=== PATIENT | female | born 1945 | race Caucasian/White ===

== ENCOUNTER 2023-09-20 16:16 | Outpatient (RCR) | payer MEDICARE, SELFPAY | END 2023-09-21 13:08 | disposition home or self-care (01) | LOC: PT 16:16 | PROVIDERS: PCP Internal Medicine; Visit Provider Internal Medicine | DX: R26.81 Unsteadiness on feet (principal); R53.1 Weakness | CPT/HCPCS: 97162 ==

== ENCOUNTER 2023-09-27 12:21 | Outpatient (OUT) | payer MEDICARE, SELFPAY ==
--- NOTE | 2023-09-27 12:26 | CT_ITS ---
[address] [address] Patient Name: MALA SANTIAGO MRN: [id number] date: 1945 Sex: F Assigned Patient Location: CT Current Patient Location: CT Accession/Order Number: [id number] Exam Date: 09/27/2023 12:30 Report Date: 09/27/2023 13:03 At the request of: MT HILTON Procedure: CT head/brain wo con EXAM: CT head/brain wo con CLINICAL INDICATION: mild cognitive impairment G31.84 COMPARISON: None TECHNIQUE: Axial CT images of the brain were obtained without contrast. Coronal and sagittal reformats were obtained. Dose reduction techniques were achieved by using automated exposure control and/or adjustment of mA and/or kV according to patient size and/or use of iterative reconstruction technique. FINDINGS: Left frontal approach ventricular shunt catheter crosses the septum pellucidum and terminates in the right lentiform nucleus. Shunt catheter is intact and courses along the scalp soft tissues. 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 No intracranial hemorrhage, extra-axial fluid collection, midline shift, or acute large vessel territory infarction. No other mass effect. Mild patchy periventricular and subcortical hypoattenuation is likely on the basis of chronic microvascular angiopathic changes. Mild symmetric global volume loss without lobar predominance. Commensurate prominence of the ventricular system. Basal cisterns are patent. Right greater than left frontal, left temporal, and left parietal encephalomalacia/gliosis. Mild asymmetric dilation of the right lateral ventricle. No calvarial fracture. Right frontal and temporal craniotomy changes. Normal soft tissues. Paranasal sinuses and mastoid air cells are well-aerated. CT/CT head/brain wo con IMPRESSION: 1. No acute intracranial process. 2. 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 3. Left frontal approach ventricular shunt catheter crosses the septum pellucidum and terminates in the right lentiform nucleus. Shunt catheter is intact and courses along the scalp soft tissues. Electronically authenticated by: CORBIN LEE Date: 09/27/2023 13:03
--- NOTE | 2023-09-27 12:27 | US_ITS ---
[address] [address] Patient Name: MALA SANTIAGO MRN: [id number] date: 1945 Sex: F Assigned Patient Location: CT Current Patient Location: CT Accession/Order Number: [id number] Exam Date: 09/27/2023 12:43 Report Date: 09/27/2023 14:48 At the request of: MT HILTON Procedure: US carotid duplex BI EXAMINATION: US carotid duplex BI HISTORY: primary hypertension I110 COMPARISON: No relevant comparison available. TECHNIQUE: Duplex Doppler ultrasound analysis of carotid and vertebral arteries. . Bilateral carotid arterial duplex examination was performed using B-mode, color flow and spectral analysis. Carotid stenosis is reported according to validated velocity parameters, similar to NASCET criteria. FINDINGS: RIGHT CAROTID ARTERY Moderate atherosclerotic plaque Subclavian: PSV: 160.0 cm/s cm/s EDV: 0.0 cm/s cm/s CCA: Prox: PSV: 70.9 cm/s cm/s EDV: 14.4 cm/s cm/s Mid: PSV: 83.8 cm/s cm/s EDV: 16.0 cm/s cm/s Distal: PSV: 80.6 cm/s cm/s EDV: 19.2 cm/s cm/s BULB: PSV: 151.5 cm/s cm/s EDV: 25.4 cm/s cm/s ICA: Prox: PSV: 63.3 cm/s cm/s EDV: 14.1 cm/s cm/s Mid: PSV: 62.0 cm/s cm/s EDV: 20.6 cm/s cm/s Distal: PSV: 55.5 cm/s cm/s EDV: 19.3 cm/s cm/s ECA: PSV: 141.5 cm/s cm/s EDV: 13.7 cm/s cm/s VERTEBRAL: PSV: 42.7 cm/s cm/s EDV: 13.0 cm/s cm/s, antegrade ICA/CCA ratio: PSV: 1.8 EDV: 1.6 LEFT CAROTID ARTERY moderate atherosclerotic plaque, elevated flow velocity in the bulb Subclavian: PSV: 141.4 cm/s cm/s EDV: 0.0 cm/s CCA: Prox: PSV: 72.5 cm/s cm/s EDV: 16.0 cm/s Mid: PSV: 74.1 cm/s cm/s EDV: 12.8 cm/s Distal: PSV: 88.7 cm/s cm/s EDV: 16.0 cm/s BULB: PSV: 259.9 cm/s cm/s EDV: 46.2 cm/s ICA: Prox: PSV: 163.8 cm/s cm/s EDV: 24.1 cm/s Mid: PSV: 79.0 cm/s cm/s EDV: 14.4 cm/s Distal: PSV: 80.6 cm/s cm/s EDV: 19.2 cm/s ECA: PSV: 101.5 cm/s cm/s EDV: 7.9 cm/s VERTEBRAL: PSV: 33.4 cm/s cm/s EDV: 7.8 cm/s , antegrade ICA/CCA ratio: PSV: 2.9 EDV: 2.9 US/US carotid duplex BI IMPRESSION: 0-49% flow stenosis right internal carotid artery Elevated flow velocity in the left carotid bulb 50-69% flow stenosis left internal carotid artery Spectral Doppler US Thresholds (Reference: Tk EG, et al. Radiology 2000; 214:247-252) Stenosis (%) PSV (cm/sec) VICA/VCCA 0-49 <150 <2.5 50-69 150-225 2.5-4.0 >70 >225 >4.0 Electronically authenticated by: PEDRO GRIFFIN Date: 09/27/2023 14:48
== END 2023-09-27 12:22 | disposition home or self-care (01) ==
LOC: CT 12:21
PROVIDERS: PCP Internal Medicine; Visit Provider Internal Medicine
DX: G31.84 Mild cognitive impairment of uncertain or unknown etiology (principal); R26.81 Unsteadiness on feet; Z86.79 Personal history of other diseases of the circulatory system; I10 Essential (primary) hypertension; R09.89 Other specified symptoms and signs involving the circulatory and respiratory systems
CPT/HCPCS: 70450; 93880

== ENCOUNTER 2024-02-08 08:04 | Outpatient (OUT) | payer MEDICARE, SELFPAY ==
[2024-02-08 08:27] LABS: Basophils Absolute Auto 0.1 10^3/uL (0.0-0.1); Basophils Percent Auto 0.7 % (0.2-2.0); Eosinophils Absolute Auto 0.3 10^3/uL (0.0-0.7); Eosinophils Percent Auto 3.7 % (0.9-7.0); Hematocrit 39.9 % (36.0-48.0); Hemoglobin 12.3 g/dL (12.0-16.0); Immature Granulocytes Abs Auto 0.02 10^3/uL (0.00-0.03); Immature Granulocytes Pct Auto 0.2 % (0.0-0.5); Lymphocytes Absolute Auto 2.3 10^3/uL (1.2-3.8); Lymphocytes Percent Auto 26.5 % (20.5-60.0); Mean Corpuscular HGB Conc 30.8 g/dL (29.9-35.2); Mean Corpuscular Hemoglobin 26.1 pg (26.7-34.0); Mean Corpuscular Volume 84.5 fL (81.0-99.0); Mean Platelet Volume 11.3 fL (9.5-13.5); Monocytes Absolute Auto 0.9 10^3/uL (0.3-0.8); Monocytes Percent Auto 10.5 % (1.7-12.0); Neutrophils Absolute Auto 5.1 10^3/uL (1.4-6.5); Neutrophils Percent Auto 58.4 % (43.0-75.0); Platelet Count 387 10^3/uL (150-450); Red Blood Count 4.72 10^6/uL (4.20-5.40); White Blood Count 8.7 10^3/uL (4.0-11.0)
[2024-02-08 08:53] LABS: Alanine Aminotransferase 9 U/L (14-59); Albumin Globulin Ratio 0.7; Albumin Level 3.4 g/dL (3.4-5.0); Alkaline Phosphatase 89 U/L (46-116); Anion Gap 14.8; Aspartate Amino Transferase 9 U/L (15-37); BUN Creatinine Ratio 12.7; Bilirubin Total 0.8 mg/dL (0.2-1.0); Calcium 8.7 mg/dL (8.5-10.1); Carbon Dioxide 26.8 mmol/L (21.0-32.0); Chloride 103 mmol/L (98-107); Chol HDL Ratio 3.6; Cholesterol 182 mg/dL (<=200); Estimated GFR (African America 58 (>=60); Estimated GFR (Non-African Ame 48 (>=60); Globulin 4.8 g/dL; Glucose 131 mg/dL (74-106); HDL Cholesterol 50 mg/dL (40-60); LDL Cholesterol Calculated 104.2 mg/dL; Potassium 3.6 mmol/L (3.5-5.1); Sodium 141 mmol/L (136-145); Thyroid Stimulating Hormone 3.346 uIU/mL (0.358-3.740); Total Protein 8.2 g/dL (6.4-8.2); Triglycerides 139 mg/dL (<=150); VLDL CHOLESTEROL 27.8 mg/dL
== END 2024-02-08 08:05 | disposition home or self-care (01) ==
LOC: LAB 08:04
PROVIDERS: PCP Internal Medicine; Visit Provider Internal Medicine
DX: R53.83 Other fatigue (principal); I65.22 Occlusion and stenosis of left carotid artery; I87.2 Venous insufficiency (chronic) (peripheral); Z86.79 Personal history of other diseases of the circulatory system; Z98.890 Other specified postprocedural states; I10 Essential (primary) hypertension
CPT/HCPCS: 36415; 80053; 80061; 84443; 85025

== ENCOUNTER 2024-08-24 08:01 | Outpatient (OUT) | payer MEDICARE, SELFPAY ==
--- OUTSIDE RECORDS SUMMARY | 2024-08-24 08:23 | XMS_ITS | CCD ---
Author Organization [facility] Care Team Providers Care Regional Director Name Role Phone Omer Mcnally Unavailable Unavailable Mcnally, Omer Driscoll Unavailable Unavailable Ball, Houston Crenshaw Unavailable Unavailabl e Mcnally, Omer Driscoll Unavailable Unavailable Mcnally, Omer Driscoll Unavailable Unavailable Mcnally, Omer Driscoll Unavailable Unavailable Ball, Houston Crenshaw Unavailable Unavailabl e BALL, DR CONRAD Consulting Unavailable BALL, DR CONRAD Primary Care Unavailable BALL, DR CONRAD Admitting Unavailable BALL, DR CONRAD Attending Unavailable BALL, DR CONRAD Primary Care Unavailable BALL, DR CONRAD Admitting Unavailable BALL, DR CONRAD Attending Unavailable BALL, DR CONRAD Attending Unavailable BALL, DR CONRAD Consulting Unavailable BALL, DR CONRAD Primary Care Unavailable BALL, DR CONRAD Admitting Unavailable BALL, DR CONRAD Attending Unavailable BALL, DR CONRAD Consulting Unavailable BALL, DR CONRAD Primary Care Unavailable BALL, DR CONRAD Admitting Unavailable ZIEBER, DR JOHN Urias Consulting Unavailable BALL, DR CONRAD Consulting Unavailable BALL, DR CONRAD Primary Care Unavailable BALL, DR CONRAD Admitting Unavailable BALL, DR CONRAD Attending Unavailable Ball, Houston Unavailable MODE SUN Attending Unavailable BALL, HOUSTON Martinez Referring Unavailable MODE SUN Attending Unavailable Allergies Allergy Classification Reported Allergen(s) Allergy Type Date of Onset Reaction(s) Facility (13 sources) metal/nickel Propensity to adverse reactions rash [facility] Other (2 sources) patient allergy list reviewed by nurse or physicia Propensity to adverse reactions Comment:Done [facility] Other Medications Current Medications Medication Drug Class(es) Dates Sig (Normalized) Sig (Original) alendronic acid 70 mg oral tablet (15 sources) Bisphosphonate Start: 01-31-2024 take 1 tablet by mouth every week Alendronate 70 mg tablet Active 70 MG PO every week January 30, 2024 11:00pm 30 minutes before the first food, beverage or medicine of the day with plain water Alendronate Sodi um 70 MG 1 tablet 30 minutes before the first food, beverage or medicine of the day with plain water Orally once weekly Active cetirizine hydrochloride 10 mg oral tablet (15 sources) Histamine-1 Receptor Antagonist Start: 01-31-2024 take 1 tablet by mouth once daily Cetirizine 10 mg tablet Active 10 MG PO Daily January 30, 2024 11:00pm take 1 tablet by kayla every twenty-four hours Cetirizine HCl 10 MG 1 tablet Orally Onc e a day for 90 days Active esomeprazole 40 mg delayed release oral capsule (15 sources) Proton Pump Inhibitor Start: 01-31-2024 take 1 capsule by mouth once daily Esomeprazole Magnesium 40 mg capsule,delayed release(DR/EC) Active 1 CAP PO Daily January 30, 2024 11:00pm FreeTextSi capsule Orally Once a day; Note: Source Status: Continue; Provider: Kevin Conrad ( ) take 1 capsule by mo [facility] every twenty-four hours Esomeprazole Magnesium 40 MG 1 capsule Orally Once a day Active hydroCHLOROthiazide 12.5 mg oral capsule (19 sources) Thiazide Diuretic Start: 11-21-2023 End: 07-16-2024 take 1 capsule by mouth once daily Hydrochlorothiazide 12.5 mg capsule Active 12.5 MG PO Daily 90 July 16, 2024 11:22am Start: 09-07-2022 take 1 capsule by mo ut every twenty-four hours hydroCHLOROthiazide 12.5 MG 1 capsule Orally Once a day Sep, Active metoprolol tartrate 50 mg oral tablet (16 sources) beta-Adrenergic Lesley Start: 08-09-2024 take 1 tablet by mouth twice daily Metoprolol Tartrate 50 mg tablet Active 0 .ROUTE .COMPLEX 180 August 09, 2024 7:12am TAKE ONE TABLET BY MOUTH TWICE A DAY Start: 01-31-2024 End: 08-09-2024 take 1 tablet by mouth twice daily Metoprolol Tartrate 50 mg tablet Discontinued 50 MG PO Twice daily January 30, 2024 11:00pm August 09, 2024 7:13am take 1 tablet by kayla every twelve hours Metoprolol Tartrate 50 MG 1 tablet Orally Twice a day for 90 days Active polysaccharide iron complex 150 mg oral capsule (15 sources) Start: 01-31-2024 Polysaccharide Iron Complex (Ferrex 150) 150 mg iron capsule Active 150 MG PO .QOD January 30, 2024 11:00pm take 1 capsule by mouth every ot her day Ferrex 150 150 MG 1 capsule Orally qod for 90 days Active potassium 75 mg oral tablet (2 sources) Start: 01-31-2024 take 1 tablet by mouth once daily Potassium 75 mg tablet Active 75 MG PO Daily January 30, 2024 11:00pm 24 hr venlafaxine 150 mg extended release oral capsule (7 sources) Serotonin and Norepinephrine Reuptake Inhibitor Start: 01-31-2024 End: 07-16-2024 take 1 capsule by mouth once daily Venlafaxine 150 mg capsule,extended release 24hr Active 150 MG PO Daily July 16, 2024 11:21am Venlafaxine HCl ER 150 MG TAKE 1 CAPSULE ONCE DAILY Orally Once a day for 90 days Active Completed/Discontinued Medications Medication Drug Class(es) Dates Sig (Normalized) Sig (Original) methylPREDNISolone 4 mg oral tablet (13 sources) Corticosteroid Start: 11-12-2018 Medrol (Antonio) 4 MG half of daily dose in the morning with food and the rest at night with food Orally Oct, Not-Taking/PRN Potassimin (13 sources) Potassimin Not-Taking/PRN Potassimin Not-T aking valACYclovir 1000 mg oral tablet (13 sources) Herpesvirus Nucleoside Analog DNA Polymerase Inhibitor, Herpes Simplex Virus Nucleoside Analog DNA Polymerase Inhibitor, Herpes Zoster Virus Nucleoside Analog DNA Polymerase Inhibitor Start: 11-12-2018 take 1 tablet by mouth every twelve hours Valtrex 1 GM 1 tablet Orally bid for 7 days Oct, Not-Taking/PRN Start: 11-12-2018 take 1 tablet by kayla th every twelve hours Valtrex 1 GM 1 tablet Orally bid for 7 days Oct, Not-Taking Problems Active Problems Problem Classification Problem Date Documented Date Episodic/Chronic Acute cerebrovascular disease (4 sources) Subarachnoid hemorrhage; Translations: [Nontraumatic subarachnoid hemorrhage, unspecified] Onset: 10-01-19 14 Chronic Cardiac dysrhythmias (16 sources) Cardiac arrhythmia, unspecified; Translations: [Irregular heart beat] Onset: 10-01-19 Chronic Coagulation and hemorrhagic disorders (19 sources) Thrombocytopenia, unspecified; Translations: [Thrombocytopenic disorder] Onset: 10-02-19 22 Chronic Deficiency and other anemia (5 sources) Anemia, unspecified; Translations: [ANEMIA UNSPECIFIED] Onset: 09-21-19 23 Episodic Deficiency and other anemia (15 sources) Anemia; Translations: [Anemia, unspecified] Episodic Deficiency and other anemia (13 sources) Iron deficiency anemia; Translations: [Iron deficiency anemia, unspecified] Episodic Deficiency and other anemia (5 sources) Iron deficiency anemia, unspecified Episodic Diabetes mellitus without complication (2 sources) Impaired fasting glycemia; Translations: [Impaired fasting glucose] 08-17-2024 Episodic Esophageal disorders (20 sources) Gastro-esophageal reflux disease with esophagitis; Translations: [Gastroesophageal reflux disease with esophagitis without hemorrhage] Onset: 10-01-19 14 01-22-2024 Chronic Essential hypertension (20 sources) Essential (primary) hypertension; Translations: [Essential hypertension] Onset: 10-01-19 14 Chronic Hepatitis (2 sources) 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; Translations: [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] Onset: 10-01-19 14 Chronic Immunity disorders (13 sources) Combined immunodeficiency disease ; Translations: [Other combined immunodeficiencies] Chronic Immunizations and screening for infectious disease (2 sources) Vaccination given; Translations: [Encounter for immunization] Episodic Malaise and fatigue (20 sources) Other malaise; Translations: [Other fatigue] Onset: 12-01-19 16 Episodic Menopausal disorders (2 sources) Primary ovarian failure; Translations: [Other primary ovarian failure] Onset: 01-14-20 18 Chronic Miscellaneous mental health disorders (13 sources) Primary insomnia; Translations: [Primary insomnia] Chronic Mood disorders (20 sources) Mild recurrent major depression; Translations: [Major depressive disorder, recurrent, mild] Onset: 10-01-19 14 Chronic Nutritional deficiencies (16 sources) Vitamin D deficiency; Translations: [Vitamin D deficiency, unspecified] 08-17-2024 Chronic Occlusion or stenosis of precerebral arteries (3 sources) Left carotid artery stenosis; Translations: [Occlusion and stenosis of left carotid artery] 01-22-2024 Chronic Comment on above: Carotid US: right < 50%, left 50-69% - 09/2023 Osteoarthritis (2 sources) Localized, primary osteoarthritis of the hand; Translations: [Primary osteoarthritis, unspecified hand] Onset: 06-18-20 16 Chronic Osteoporosis (20 sources) Age-related osteoporosis without current pathological fracture; Translations: [Primary osteoporosis] Onset: 01-26-20 Chronic Other aftercare (2 sources) Long-term current use of drug therapy; Translations: [Other buttermaker continuous churn (current) drug therapy] Episodic Other circulatory disease (13 sources) History of cerebral aneurysm; Translations: [Personal history of other diseases of the circulatory system] Episodic Other circulatory disease (6 sources) Personal history of other diseases of the circulatory system Episodic Other circulatory disease (2 sources) H/O: cardiovascular disease; Translations: [Personal history of other diseases of the circulatory system] Episodic Other circulatory disease (1 source) Other specified symptoms and signs involving the circulatory and respiratory systems Episodic Other circulatory disease (2 sources) History of intracranial hemorrhage; Translations: [Personal history of other diseases of the circulatory system] 01-22-2024 Episodic Comment on above: Estimated to have oc curred 2009.- she had a total of 3 aneurysms, one spontaneously ruptured and the remaining were surgically treated.[employer]UMP [employer]ER shunt placed. Other connective tissue disease (13 sources) Pain in limb; Translations: [Pain in left arm] Episodic Other connective tissue disease (2 sources) Pain in left arm; Translations: [Pain in left arm] Episodic Other diseases of bladder and urethra (2 sources) Overactive bladder; Translations: [Overactive bladder] Onset: 09-26-19 19 Chronic Other diseases of veins and lymphatics (17 sources) Peripheral venous insufficiency; Translations: [Venous insufficiency (chronic) (peripheral)] Onset: 07-30-20 15 Episodic Other diseases of veins and lymphatics (7 sources) Venous insufficiency (chronic) (peripheral); Translations: [Venous (peripheral) insufficiency, unspecified] Episodic Other diseases of veins and lymphatics (2 sources) Venous insufficiency of leg; Translations: [Venous insufficiency (chronic) (peripheral)] 01-22-2024 Episodic Other gastrointestinal disorders (2 sources) Irritable bowel syndrome with diarrhea; Translations: [Irritable bowel syndrome with diarrhea] Onset: 11-09-19 19 Chronic Other hereditary and degenerative nervous system conditions (15 sources) Impaired cognition; Translations: [Mild cognitive impairment, so stated] 01-22-2024 Chronic Other hereditary and degenerative nervous system conditions (6 sources) Mild cognitive impairment, so stated; Translations: [Mild cognitive impairment, so stated] Chronic Other hereditary and degenerative nervous system conditions (2 sources) Mild cognitive disorder ; Translations: [Mild cognitive impairment, so stated] Chronic Other injuries and conditions due to external causes (2 sources) History of fall; Translations: [History of falling] Episodic Other nervous system disorders (13 sources) Ventriculoperitoneal shunt in situ; Translations: [Presence of cerebrospinal fluid drainage device] Chronic Other nervous system disorders (1 source) Presence of cerebrospinal fluid drainage device Chronic Other nervous system disorders (2 sources) Lesion of ulnar nerve; Translations: [Lesion of ulnar nerve] Onset: 10-11-19 18 Chronic Other nervous system disorders (2 sources) Carpal tunnel syndrome; Translations: [Carpal tunnel syndrome, right upper limb] Onset: 07-30-20 15 Chronic Other nervous system disorders (2 sources) Ataxia, unspecified; Translations: [ATAXIA UNSPECIFIED] Onset: 09-27-19 23 Episodic Other nervous system disorders (9 sources) Unsteadiness on feet; Translations: [UNSTEADINESS ON FEET] Onset: 01-23-20 22 Episodic Other nervous system disorders (20 sources) Abnormal gait; Translations: [Unsteadiness on feet] 01-31-2024 Episodic Other nervous system disorders (15 sources) Ataxia; Translations: [Ataxia, unspecified] Episodic Other nervous system disorders (13 sources) Abnormal involuntary movement; Translations: [Tremor, unspecified] Episodic Other nervous system disorders (2 sources) Tremor; Translations: [Tremor, unspecified] Episodic Other nutritional; endocrine; and metabolic disorders (15 sources) Obesity; Translations: [Obesity, unspecified] Onset: 05-21-20 22 Chronic Other nutritional; endocrine; and metabolic disorders (2 sources) Morbid obesity; Translations: [Morbid (severe) obesity due to excess calories] Onset: 10-01-19 14 Chronic Other nutritional; endocrine; and metabolic disorders (6 sources) Obese class II; Translations: [Body mass index 37.0-37.9, adult] Onset: 12-01-19 16 Chronic Other nutritional; endocrine; and metabolic disorders (2 sources) Body mass index 30+ - obesity; Translations: [Body mass index 36.0-36.9, adult] Onset: 12-01-19 16 Chronic Other nutritional; endocrine; and metabolic disorders (2 sources) Body mass index 40+ - severely obese; Translations: [Body Mass Index 40.0-44.9, adult] Onset: 12-01-19 Chronic Other screening for suspected conditions (not mental disorders or infectious disease) (8 sources) Encounter for screening mammogram for malignant neoplasm of breast; Translations: [Patient encounter status] Onset: 09-23-19 Episodic Residual codes; unclassified (1 source) Family history of malignant neoplasm of breast; Translations: [FAMILY HX MALIG NEOPLASM OF BREAST] Onset: 09-27-19 Episodic Residual codes; unclassified (1 source) Disorientation, unspecified Episodic Residual codes; unclassified (2 sources) Postprocedural state finding; Translations: [Other specified postprocedural states] Episodic Residual codes; unclassified (2 sources) History of surgery for cerebral aneurysm; Translations: [Other specified postprocedural states] 01-22-2024 Episodic Residual codes; unclassified (1 source) Other specified postprocedural states; Translations: [Other postprocedural status] 01-31-2024 Episodic Substance-related disorders (16 sources) Tobacco user; Translations: [Nicotine dependence, cigarettes, in remission] 01-22-2024 Chronic Unclassified (3 sources) Carpal tunnel syndrome, right upper limb / G56.01(ICD-10) Onset: 01-20-20 Past or Other Problems Problem Classification Problem Date Documented Da te Episodic/Chronic Allergic reactions (2 sources) Idiopathic urticaria; Translations: [Idiopathic urticaria] Onset: 01-16-2019 Episodic Esophageal disorders (5 sources) Esophageal disorders Fluid and electrolyte disorders (2 sources) Hypokalemia; Translations: [Hypokalemia] Onset: 11-08-2018 Episodic Hepatitis (2 sources) Viral hepatitis B without hepatic coma; Translations: [Unspecified viral hepatitis B without hepatic coma] Onset: 09-30-2013 Episodic Other circulatory disease (2 sources) Bleeding; Translations: [Hemorrhage, not elsewhere classified] Onset: 09-30-2013 Episodic Other connective tissue disease (2 sources) Pain in forearm; Translations: [Pain in joint, forearm] Onset: 12-01-2015 Episodic Other connective tissue disease (2 sources) Swelling of limb; Translations: [Swelling of limb] Onset: 06-18-2016 Episodic Other gastrointestinal disorders (2 sources) Diarrhea; Translations: [Diarrhea] Onset: 10-25-2018 Episodic Other infections; including parasitic (2 sources) H/O: infectious disease; Translations: [Personal history of other infectious and parasitic diseases] Resolved: 09-02-2020 Episodic Other inflammatory condition of skin (2 sources) Pruritus of skin; Translations: [Unspecified pruritic disorder] Onset: 10-10-2017 Episodic Other injuries and conditions due to external causes (1 source) History of falling; Translations: [HISTORY OF FALLING] Onset: 01-25-2022 Episodic Other nervous system disorders (2 sources) Paresthesia; Translations: [Paresthesia of skin] Onset: 01-22-2015 Episodic Other non-traumatic joint disorders (2 sources) Hand joint pain; Translations: [Pain in joint, hand] Onset: 02-09-2016 Episodic Other non-traumatic joint disorders (2 sources) Arthralgia of the lower leg; Translations: [Pain in joint, lower leg] Onset: 11-20-2014 Episodic Other nutritional; endocrine; and metabolic disorders (2 sources) Abnormal weight gain; Translations: [Abnormal weight gain] Onset: 12-01-2015 Episodic Residual codes; unclassified (2 sources) Requires influenza virus vaccination; Translations: [Need for prophylactic vaccination and inoculation, Influenza] Onset: 05-30-2018 Episodic Screening and history of mental health and substance abuse codes (2 sources) History of tobacco use; Translations: [Personal history of tobacco use, presenting hazards to health] Onset: 01-07-2017 Episodic Skin and subcutaneous tissue infections (2 sources) Cellulitis and abscess of lower leg; Translations: [Cellulitis and abscess of leg, except foot] Onset: 06-18-2016 Episodic Unclassified (1 source) Carpal tunnel syndrome, right upper limb; Translations: [Carpal tunnel syndrome, right upper limb] Onset: 01-19-2018 Unclassified (2 sources) Vaccine product containing only acellular Bordetella pertussis and Clostridium tetani and Corynebacterium diphtheriae antigens (medicinal product); Translations: [[id number]-e ertussis, combined [DTP] [DtaP]] Onset: 07-30-2015 Results Test Name Value Interpretation Reference Range Facility [facility] MAMM SCREEN 3D MARIAH CADon 09-23-2022 MG MAMM SCREEN 3D MARIAH CAD Patient: MALA SANTIAGOSrinivasan Exam Date: 09/23/2022 : 1945 Gender:F Ordering : DR HOUSTON BROWN D.O. Admission #: [id number] Family : Order #: [id number] CLICK HERE TO VIEW EXAM RADIOLOGY REPORT PROCEDURE: MAMMOGRAM SCREENING 3D BILATERAL CAD COMPARISON: MG MAMM SCREEN MARIAH W CAD, 02/05/2019. MG MAMM SCREEN MARIAH W CAD, 02/02/2018. DIGITIZED_MAMMO, 04/05/2001. MG MAMM SCREEN MARIAH W CAD, 03/03/2020. INDICATIONS: Screening mammography Calculator Name NCI Breast Cancer Risk Assessment Tool 5 Year Breast Cancer Risk 1.70% Lifetime Breast Cancer Risk 3.90% Personal Breast Cancer No Personal Ovarian Cancer No Treatments None Family Cancers Aunt-maternal with breast cancer at age 60. LOCATION: [facility] BREAST COMPOSITION: Scattered areas fibroglandular density. FINDINGS: DIAGNOSTIC CATEGORY 2--BENIGN FINDING: RIGHT BREAST: No significant suspicious finding. Stable biopsy marker clip upper inner quadrant. Scattered benign-appearing calcifications are present. No significant change has occurred. LEFT BREAST: No significant suspicious finding. Scattered benign-appearing calcifications are present. No significant change has occurred. RECOMMENDATIONS: ROUTINE MAMMOGRAM AND CLINICAL EVALUATION IN 12 MONTHS. PLEASE NOTE: A NORMAL MAMMOGRAM DOES NOT EXCLUDE THE POSSIBILITY OF BREAST CANCER. A CLINICALLY SUSPICIOUS PALPABLE LUMP SHOULD BE BIOPSIED. Dictated by: John Hernandez M.D. on 09/24/2022 at 09:29 Approved by: John Hernandez M.D. on 09/24/2022 at 09:34 Normal [facility] CBC AUTO DIFFon 09-21-2022 BASO # 0.1 103/ul Normal 0.0-0.1 [facility] Comment on above: Performed By: #### TSH, CMP #### [facility] [address] [address] [address] Glynn Young Basophils/100 WBC (Bld) 0.6 % Normal 0.2-2.0 [facility] Comment on above: Performed By: #### TSH, CMP #### [facility] [address] [address] [address] Glynn Young EO # 0.3 103/ul Normal 0.0-0.7 [facility] Comment on above: Performed By: #### TSH, CMP #### [facility] [address] [place] [address] Dr. Glynn Young Eosinophils/100 WBC (Bld) 3.0 % Normal 0.9-7.0 [facility] Comment on above: Performed By: #### TSH, CMP #### [facility] [address] [place] [address] Dr. Glynn Young Erythrocyte distribution width (RBC) [Ratio] 15.3 % Critically high 11.0-15.0 [facility] Comment on above: Performed By: #### TSH, CMP #### [facility] [address] [place] [address] Dr. Glynn Young Hematocrit (Bld) [Volume fraction] 38.1 % Normal 36.0-48.0 [facility] Comment on above: Performed By: #### TSH, CMP #### [facility] [address] [place] [address] Dr. Glynn Young Hemoglobin (Bld) [Mass/Vol] 11.6 g/dL Critically low 12.0-16.0 [facility] Comment on above: Performed By: #### TSH, CMP #### [facility] [address] [place] [address] Dr. Glynn Young IG # 0.02 10e3/ul Normal 0.00-0.03 [facility] Comment on above: Performed By: #### TSH, CMP #### [facility] [address] [place] [address] Dr. Glynn Young IG % 0.2 % Normal 0.0-0.5 [facility] Comment on above: Performed By: #### TSH, CMP #### [facility] [address] [place] [address] Dr. Glynn Young LYMPH # 1.8 103/ul Normal 1.2-3.8 [facility] Comment on above: Performed By: #### TSH, CMP #### [facility] [address] [place] [address] Dr. Glynn Young Lymphocytes/100 WBC (Bld) 20.3 % Critically low 20.5-60.0 [facility] Comment on above: Performed By: #### TSH, CMP #### [facility] [address] [place] [address] Dr. Glynn Young MANUAL DIFF REQ NO Normal [facility] Comment on above: Performed By: #### TSH, CMP #### [facility] [address] [place] [address] Dr. Glynn Young MCH (RBC) [Entitic mass] 25.4 pg Critically low 26.7-34.0 [facility] Comment on above: Performed By: #### TSH, CMP #### [facility] [address] [place] [address] Dr. Glynn Young MCHC (RBC) [Mass/Vol] 30.4 g/dL Normal 29.9-35.2 [facility] Comment on above: Performed By: #### TSH, CMP #### [facility] [address] [place] [address] Dr. Glynn Young MCV (RBC) [Entitic vol] 83.4 fL Normal 81.0-99.0 [facility] Comment on above: Performed By: #### TSH, CMP #### [facility] [address] [place] [address] Dr. Glynn Young MONO # 1.0 103/ul Critically high 0.3-0.8 [facility] Comment on above: Performed By: #### TSH, CMP #### [facility] [address] [place] [address] Dr. Glynn Young Monocytes/100 WBC (Bld) 11.7 % Normal 1.7-12.0 [facility] Comment on above: Performed By: #### TSH, CMP #### [facility] [address] [place] [address] Dr. Glynn Young NEUT # 5.7 103/ul Normal 1.4-6.5 [facility] Comment on above: Performed By: #### TSH, CMP #### [facility] [address] [place] [address] Dr. Glynn Young Neutrophils/100 WBC (Bld) 64.2 % Normal 43.0-75.0 [facility] Comment on above: Performed By: #### TSH, CMP #### [facility] [address] [address] [address] Glynn Young Platelet mean volume (Bld) [Entitic vol] 10.7 fL Normal 9.5-13.5 [facility] Comment on above: Performed By: #### TSH, CMP #### [facility] [address] [address] [address] Glynn Young PLT 400 103/ul Normal 150-450 [facility] Comment on above: Performed By: #### TSH, CMP #### [facility] [address] [address] [address] Glynn Young RBC 4.57 106/ul Normal 4.20-5.40 [facility] Comment on above: Performed By: #### TSH, CMP #### [facility] [address] [address] [address] Glynn Young WBC 8.9 103/ul Normal 4.0-11.0 [facility] Comment on above: Performed By: #### TSH, CMP #### [facility] Laboratory [address] [address] [address] Glynn Young Complete Blood Count and Dif rosina 09-21-2022 Anisocytosis Ql (Bld) Data[employer] Other Basophilic stippling LM Ql (Bld) Vino [facility] kajeet Other RBC morphology finding Nom (Bld) [facility] kajeet Other Complete Blood Count and Diff DataPad Other Comprehensive Metabolic Pane buddy 09-21-2022 Albumin [Mass/Vol] 3.541075 g/dL 3.4-5.0 g/dL [employer] Other Calcium [Mass/Vol] 9.3914828 mg/dL 8.5-10.1 mg/dL [employer] Other CO2 [Moles/Vol] 29.72721207 mmol/L 21.0-3 2.0 mmol/L [employer] Other Creatinine [Mass/Vol] 1.66570425 mg/dL 0.55-1.02 mg/dL [employer] Other Potassium [Moles/Vol] 4.28703213 mmol/L 3.5-5.1 mmol/L [employer] Other Protein [Mass/Vol] 8.084280 g/dL 6.4-8.2 g/dL [employer] Other Urea nitrogen [Mass/Vol] 16.8710918 mg/dL 7.0-18.0 mg/dL [employer] Other Comprehensive Metabolic Panel see note [employer] Other Comprehensive Metabolic Panel 142 mmol/L 136-145 mmol/L [employer] Other Comprehensive Metabolic Panel 102 mg/dL 74-106 mg/dL [employer] Other Comprehensive Metabolic Panel 54 mL/min/1.73m2 Critically low >=60 mL/min/1.7 3m2 [employer] Other Comprehensive Metabolic Panel >60 mL/min/1.73m2 >=60 mL/min/1.7 3m2 [employer] Other Comprehensive Metabolic Panel 0.3 mg/dL 0.2-1.0 mg/dL [employer] Other Comprehensive Metabolic Panel 4.8 g/dL [employer] Other FERRITINon 09-21-2022 Ferritin [Mass/Vol] 13.0 ng/mL Normal 8.0-252.0 [facility] Comment on above: Performed By: #### FETIBC, B12FOL, FERR #### [facility] [address] [place] [address] Dr. Glynn Young IRON AND TIBCon 09-21-2022 % SATURATION 7.1 % Normal [facility] Comment on above: Performed By: #### FETIBC, B12FOL, FERR #### [facility] [address] [address] [address] Glynn Young Iron [Mass/Vol] 30.0 ug/dL Critically low 50.0-170.0 [facility] Comment on above: Performed By: #### FETIBC, B12FOL, FERR #### [facility] [address] [place] [address] Dr. Glynn Young TIBC DIRECT 420.0 ug/dL Normal 250.0-450. 0 [facility] Comment on above: Performed By: #### FETIBC, B12FOL, FERR #### [facility] [address] [place] [address] Dr. Glynn Young PROF 14(COMP METB)on 023 Albumin [Mass/Vol] 3.4 g/dL Normal 3.4-5.0 [facility] Comment on above: Performed By: #### TSH, CMP #### [facility] [address] [place] [address] Dr. Glynn Young Albumin/Globuli n [Mass ratio] 0.7 {ratio} [facility] Comment on above: Performed By: #### TSH, CMP #### [facility] [address] [place] [address] Dr. Glynn Young ALP [Catalytic activity/Vol] 86 U/L 46-116 U/L [facility] Comment on above: Performed By: #### TSH, CMP #### [facility] [address] [place] [address] Dr. Glynn Young ALT [Catalytic activity/Vol] 10 U/L Critically low 14-59 U/L [facility] Comment on above: Performed By: #### TSH, CMP #### [facility] [address] [place] [address] Dr. Glynn Young Anion gap [Moles/Vol] 10.7 mmol/L [facility] Comment on above: Performed By: #### TSH, CMP #### [facility] [address] [place] [address] Dr. Glynn Young AST [Catalytic activity/Vol] 12 U/L Critically low 15-37 U/L [facility] Comment on above: Performed By: #### TSH, CMP #### [facility] [address] [address] [address] Glynn Young Bilirubin [Mass/Vol] 0.3 mg/dL Normal 0.2-1.0 [facility] Comment on above: Performed By: #### TSH, CMP #### [facility] [address] [address] [address] Glynn Young Calcium [Mass/Vol] 9.0 mg/dL Normal 8.5-10.1 [facility] Comment on above: Performed By: #### TSH, CMP #### [facility] [address] [address] [address] Glynn Young Chloride [Moles/Vol] 106 mmol/L 98-107 mmol/L [facility] Comment on above: Performed By: #### TSH, CMP #### [facility] [address] [place] [address] Dr. Glynn Young CO2 [Moles/Vol] 29.8 mmol/L Normal 21.0-32.0 [facility] Comment on above: Performed By: #### TSH, CMP #### [facility] [address] [place] [address] Dr. Glynn Young Creatinine [Mass/Vol] 1.00 mg/dL Normal 0.55-1.02 [facility] Comment on above: Performed By: #### TSH, CMP #### [facility] [address] [place] [address] Dr. Glynn Young EGFR-AF ITALIAN >60 Normal >=60 [facility] Comment on above: Performed By: #### TSH, CMP #### [facility] [address] [place] [address] Dr. Glynn Young EGFR-NON AF ITALIAN 54 mL/min/1.73m2 Critically low >=60 [facility] Comment on above: Performed By: #### TSH, CMP #### [facility] [address] [place] [address] Dr. Glynn Young Globulin (S) [Mass/Vol] 4.8 g/dL Normal [facility] Comment on above: Performed By: #### TSH, CMP #### [facility] [address] [address] [address] Glynn Young Glucose [Mass/Vol] 102 mg/dL Normal 74-106 [facility] Comment on above: Performed By: #### TSH, CMP #### [facility] [address] [address] [address] Glynn Young Potassium [Moles/Vol] 4.5 mmol/L Normal 3.5-5.1 [facility] Comment on above: Performed By: #### TSH, CMP #### [facility] [address] [address] [address] Glynn Young Protein [Mass/Vol] 8.2 g/dL Normal 6.4-8.2 [facility] Comment on above: Performed By: #### TSH, CMP #### [facility] [address] [place] [address] Dr. Glynn Young Sodium [Moles/Vol] 142 mmol/L Normal 136-145 [facility] Comment on above: Performed By: #### TSH, CMP #### [facility] [address] [place] [address] Dr. Glynn Young Urea nitrogen [Mass/Vol] 16.0 mg/dL Normal 7.0-18.0 [facility] Comment on above: Performed By: #### TSH, CMP #### [facility] [address] [place] [address] Dr. Glynn Young Urea nitrogen/Creati nine [Mass ratio] 16.0 mg/mg [facility] Comment on above: Performed By: #### TSH, CMP #### [facility] [address] [address] [address] Glynn Young TSHon 09-21-2022 TSH 2.963 uIU/mL Normal 0.358-3.74 0 [facility] Comment on above: Performed By: #### TSH, CMP #### [facility] [address] [place] [address] Dr. Glynn Young VIT B12 AND FOLATEon 023 Cobalamin (Vitamin B12) [Mass/Vol] 510.0 pg/mL Normal 193.0-986. 0 [facility] Comment on above: Performed By: #### FETIBC, B12FOL, FERR #### [facility] [address] [place] [address] Dr. Glynn Young FOLATE 11.90 ng/mL Normal 8.60-58.90 [facility] Comment on above: Performed By: #### FETIBC, B12FOL, FERR #### [facility] [address] [place] [address] Dr. Glynn Young CBC AUTO DIFFon 10-01-2021 BASO # 0.0 103/ul Normal 0.0-0.1 [facility] Comment on above: Performed By: #### CBC #### [facility] [address] [place] [address] Dr. Glynn Young Basophils/100 WBC (Bld) 0.4 % Normal 0.2-2.0 [facility] Comment on above: Performed By: #### CBC #### [facility] [address] [place] [address] Dr. Glynn Young EO # 0.4 103/ul Normal 0.0-0.7 [facility] Comment on above: Performed By: #### CBC #### [facility] [address] [place] [address] Dr. Glynn Young Eosinophils/100 WBC (Bld) 4.7 % Normal 0.9-7.0 [facility] Comment on above: Performed By: #### CBC #### [facility] [address] [place] [address] Dr. Glynn Young Erythrocyte distribution width (RBC) [Ratio] 13.8 % Normal 11.0-15.0 [facility] Comment on above: Performed By: #### CBC #### [facility] [address] [place] [address] Dr. Glynn Young Hematocrit (Bld) [Volume fraction] 38.3 % Normal 36.0-48.0 [facility] Comment on above: Performed By: #### CBC #### [facility] [address] [place] [address] Dr. Glynn Young Hemoglobin (Bld) [Mass/Vol] 11.9 g/dL Critically low 12.0-16.0 [facility] Comment on above: Performed By: #### CBC #### [facility] [address] [place] [address] Dr. Glynn Young IG # 0.03 10e3/ul Normal 0.00-0.03 [facility] Comment on above: Performed By: #### CBC #### [facility] [address] [place] [address] Dr. Glynn Young IG % 0.3 % Normal 0.0-0.5 [facility] Comment on above: Performed By: #### CBC #### [facility] [address] [place] [address] Dr. Glynn Young LYMPH # 1.9 103/ul Normal 1.2-3.8 [facility] Comment on above: Performed By: #### CBC #### [facility] [address] [place] [address] Dr. Glynn Young Lymphocytes/100 WBC (Bld) 20.8 % Normal 20.5-60.0 [facility] Comment on above: Performed By: #### CBC #### [facility] [address] [place] [address] Dr. Glynn Young MANUAL DIFF REQ NO Normal [facility] Comment on above: Performed By: #### CBC #### [facility] [address] [place] [address] Dr. Glynn Young MCH (RBC) [Entitic mass] 28.1 pg Normal 26.7-34.0 [facility] Comment on above: Performed By: #### CBC #### [facility] [address] [place] [address] Dr. Glynn Young MCHC (RBC) [Mass/Vol] 31.1 g/dL Normal 29.9-35.2 [facility] Comment on above: Performed By: #### CBC #### [facility] [address] [place] [address] Dr. Glynn Young MCV (RBC) [Entitic vol] 90.3 fL Normal 81.0-99.0 [facility] Comment on above: Performed By: #### CBC #### [facility] [address] [address] [address] Glynn Young MONO # 0.9 103/ul Critically high 0.3-0.8 [facility] Comment on above: Performed By: #### CBC #### [facility] [address] [address] [address] Glynn Young Monocytes/100 WBC (Bld) 9.6 % Normal 1.7-12.0 [facility] Comment on above: Performed By: #### CBC #### [facility] [address] [address] [address] Glynn Young NEUT # 6.0 103/ul Normal 1.4-6.5 [facility] Comment on above: Performed By: #### CBC #### [facility] [address] [place] [address] Dr. Glynn Young Neutrophils/100 WBC (Bld) 64.2 % Normal 43.0-75.0 [facility] Comment on above: Performed By: #### CBC #### [facility] [address] [place] [address] Dr. Glynn Young Platelet mean volume (Bld) [Entitic vol] 11.4 fL Normal 9.5-13.5 [facility] Comment on above: Performed By: #### CBC #### [facility] [address] [place] [address] Dr. Glynn Young PLT 313 103/ul Normal 150-450 [facility] Comment on above: Performed By: #### CBC #### [facility] [address] [place] [address] Dr. Glynn Young RBC 4.24 106/ul Normal 4.20-5.40 [facility] Comment on above: Performed By: #### CBC #### [facility] [address] [place] [address] Dr. Glynn Young WBC 9.3 103/ul Normal 4.0-11.0 [facility] Comment on above: Performed By: #### CBC #### [facility] [address] [place] [address] Dr. Glynn Young CBC AUTO DIFFon 09-29-2021 BASO # 0.0 103/ul Normal 0.0-0.1 [facility] Comment on above: Performed By: #### CBC #### [facility] [address] [place] [address] Dr. Glynn Young Basophils/100 WBC (Bld) 0.5 % Normal 0.2-2.0 [facility] Comment on above: Performed By: #### CBC #### [facility] [address] [place] [address] Dr. Glynn Young EO # 0.4 103/ul Normal 0.0-0.7 [facility] Comment on above: Performed By: #### CBC #### [facility] [address] [place] [address] Dr. Glynn Young Eosinophils/100 WBC (Bld) 4.7 % Normal 0.9-7.0 [facility] Comment on above: Performed By: #### CBC #### [facility] [address] [place] [address] Dr. Glynn Young Erythrocyte distribution width (RBC) [Ratio] 13.9 % Normal 11.0-15.0 [facility] Comment on above: Performed By: #### CBC #### [facility] [address] [place] [address] Dr. Glynn Young Hematocrit (Bld) [Volume fraction] 39.5 % Normal 36.0-48.0 [facility] Comment on above: Performed By: #### CBC #### [facility] [address] [place] [address] Dr. Glynn Young Hemoglobin (Bld) [Mass/Vol] 12.1 g/dL Normal 12.0-16.0 [facility] Comment on above: Performed By: #### CBC #### [facility] [address] [place] [address] Dr. Glynn Young IG # 0.01 10e3/ul Normal 0.00-0.03 [facility] Comment on above: Performed By: #### CBC #### [facility] [address] [place] [address] Dr. Glynn Young IG % 0.1 % Normal 0.0-0.5 [facility] Comment on above: Performed By: #### CBC #### [facility] [address] [place] [address] Dr. Glynn Young LYMPH # 1.6 103/ul Normal 1.2-3.8 [facility] Comment on above: Performed By: #### CBC #### [facility] [address] [place] [address] Dr. Glynn Young Lymphocytes/100 WBC (Bld) 21.0 % Normal 20.5-60.0 [facility] Comment on above: Performed By: #### CBC #### [facility] [address] [place] [address] Dr. Glynn Young MANUAL DIFF REQ NO Normal [facility] Comment on above: Performed By: #### CBC #### [facility] [address] [place] [address] Dr. Glynn Young MCH (RBC) [Entitic mass] 28.1 pg Normal 26.7-34.0 [facility] Comment on above: Performed By: #### CBC #### [facility] [address] [place] [address] Dr. Glynn Young MCHC (RBC) [Mass/Vol] 30.6 g/dL Normal 29.9-35.2 [facility] Comment on above: Performed By: #### CBC #### [facility] [address] [place] [address] Dr. Glynn Young MCV (RBC) [Entitic vol] 91.9 fL Normal 81.0-99.0 [facility] Comment on above: Performed By: #### CBC #### [facility] [address] [place] [address] Dr. Glynn Young MONO # 1.0 103/ul Critically high 0.3-0.8 [facility] Comment on above: Performed By: #### CBC #### [facility] [address] [place] [address] Dr. Glynn Young Monocytes/100 WBC (Bld) 13.2 % Critically high 1.7-12.0 [facility] Comment on above: Performed By: #### CBC #### [facility] [address] [place] [address] Dr. Glynn Young NEUT # 4.7 103/ul Normal 1.4-6.5 [facility] Comment on above: Performed By: #### CBC #### [facility] [address] [place] [address] Dr. Glynn Young Neutrophils/100 WBC (Bld) 60.5 % Normal 43.0-75.0 [facility] Comment on above: Performed By: #### CBC #### [facility] [address] [place] [address] Dr. Glynn Young Platelet mean volume (Bld) [Entitic vol] 12.8 fL Normal 9.5-13.5 [facility] Comment on above: Performed By: #### CBC #### [facility] [address] [place] [address] Dr. Glynn Young PLT 59 103/ul Critically low 150-450 [facility] Comment on above: Result Comment: PLATELET CLUMPS NOTED ON SLIIDE--PLATELET COUNT IS FALSELY DECREASED DUE TO CLUMPING--PLEASE REQUEST REDRAW IF REPEAT PLATELET COUNT IS REQUIRED Performed By: #### C BC #### [facility] [address] [place] [address] Dr. Glynn Young RBC 4.30 106/ul Normal 4.20-5.40 [facility] Comment on above: Performed By: #### CBC #### [facility] [address] [place] [address] Dr. Glynn Young WBC 7.7 103/ul Normal 4.0-11.0 [facility] Comment on above: Performed By: #### CBC #### [facility] [address] [place] [address] Dr. Glynn Young PROF CHEM 8 (BAS METB)on Anion gap [Moles/Vol] 11.6 mmol/L Normal [facility] Comment on above: Performed By: #### BMP, TSH #### [facility] [address] [place] [address] Dr. Glynn Young Calcium [Mass/Vol] 8.4 mg/dL Normal 8.4-10.2 [facility] Comment on above: Performed By: #### BMP, TSH #### [facility] [address] [address] [address] Glynn Young Chloride [Moles/Vol] 104 mmol/L Normal 98-107 [facility] Comment on above: Performed By: #### BMP, TSH #### [facility] [address] [address] [address] Glynn Young CO2 [Moles/Vol] 25.6 mmol/L Normal 22.0-30.0 [facility] Comment on above: Performed By: #### BMP, TSH #### [facility] [address] [place] [address] Dr. Glynn Young Creatinine [Mass/Vol] 0.98 mg/dL Normal 0.52-1.04 [facility] Comment on above: Performed By: #### BMP, TSH #### [facility] [address] [address] [address] Glynn Young EGFR-AF ITALIAN >60 Normal >=60 [facility] Comment on above: Performed By: #### BMP, TSH #### [facility] [address] [address] [address] Glynn Young EGFR-NON AF ITALIAN 56 mL/min/1.73m2 Critically low >=60 [facility] Comment on above: Performed By: #### BMP, TSH #### [facility] [address] [address] [address] Glynn Young Glucose [Mass/Vol] 104 mg/dL Normal 74-106 [facility] Comment on above: Performed By: #### BMP, TSH #### [facility] [address] [address] [address] Glynn Young Potassium [Moles/Vol] 4.2 mmol/L Normal 3.4-5.0 [facility] Comment on above: Performed By: #### BMP, TSH #### [facility] [address] [address] [address] Glynn Young Sodium [Moles/Vol] 137 mmol/L Normal 137-145 [facility] Comment on above: Performed By: #### BMP, TSH #### [facility] [address] [place], [place] [address] Dr. Glynn Young Urea nitrogen [Mass/Vol] 20.0 mg/dL Critically high 7.0-17.0 [facility] Comment on above: Performed By: #### BMP, TSH #### [facility] [address] [place], [place] [address] Dr. Glynn Young Urea nitrogen/Creati nine [Mass ratio] 20.4 mg/mg Normal [facility] Comment on above: Performed By: #### BMP, TSH #### [facility] [address] [place] [address] [address] [address] Glynn Young TSHon 09-29-2021 TSH 4.274 uIU/mL Normal 0.470-4.68 0 [facility] Comment on above: Performed By: #### BMP, TSH #### [facility] [address] [place] [address] Dr. Glynn Young TSH RANGE SEE BELOW Normal [facility] Comment on above: Result Comment: <0.34 UIU/ml HYPERTHYROI D 0.34-5.60 UIU/ml EUTHYROID >5.60 UIU/ml HYPOTHYROID Performed By: #### B MP, TSH #### [facility] [address] [place] [address] [address] Glynn Young Post Op (Orthopaedic Surgery )on 02-02-2018 Post Op (Orthopaedic Surgery) Chief ComplaintPatient returns POV #1 s/p right carpal tunnel decompression. -RL History of Present IllnessFirst postoperative visit after right carpal tunnel decompression performed January 19, 2018. Patient reports that her symptoms have much improved. She still has some mild tingling in the tip of her middle finger. All of her sleep disturbances have resolved. Her left side remains asymptomatic.Examination reveals a well-healed surgical incision. She has full digital range of motion. Mildly diminished sensation in the middle fingertip.Impression: Carpal tunnel decompression.Plan: Scar massage techniques discussed and encouraged. Progressive use of the hand as tolerated. Return in 6-8 weeks if any symptoms persist or if her left upper extremity symptoms start to progress.Siva Wyman ProfessorCrystal Clinic [facility] School of MedicineDepartment of Orthopaedic SurgeryChief of Hand and Upper Extremity SurgeryCleveland Clinic Mentor HospitalDictation performed with the use of voice recognition software. Syntax and grammatical errors may exist. Active Problems Right carpal tunnel syndrome (354.0) (G56.01) Current Meds HydroCHLOROthiazide 25 MG Oral Tablet;Therapy: (Recorded:[id number]) to Recorded Dispense: 0 Days ; #: Sufficient TABS; Refill: 0; ARLETTE = N; Record; Last Updated By: Nora Park; 12/29/2017 2:55:33 PM Metoprolol Tartrate 25 MG Oral Tablet;Therapy: (Recorded:[id number]) to Recorded Dispense: 0 Days ; #: Sufficient TABS; Refill: 0; ARLETTE = N; Record; Last Updated By: Nora Park; 12/29/2017 2:55:33 PM Diagnoses/Problems Right carpal tunnel syndrome (354.0) (G56.01) End of Encounter MedsHydroCHLOROthiazide 25 MG Oral Tablet;Therapy: (Recorded:[id number]) to RecordedMetoprolol Tartrate 25 MG Oral Tablet;Therapy: (Recorded:[id number]) to Recorded Signatures Electronically signed by : Omer Mcnally MD,; Feb 02 2018 7:58PM EST (Author) Normal [facility] History and Physical - Surgi parker Update < 30 dayson 01-19-2018 History and Physical - Surgical Update < 30 days History & Physical Reviewed:I have reviewed the History and Physical dated: [id number] and Physical reviewed and relevant findings noted. Patient examined toreview pertinent physical findings.: No significant changesHome Medications Reviewed: no changes notedAllergies Reviewed: no changes notedThis patient has been seen and discussed with the attending physicianresponsible for performing the procedure: yes Signatures/Attestation/Certifica tion:Attending AttestationI saw and evaluated the patient. I personally obtainedthe ovalle and critical portions of the history and physical exam or wasphysically present for ovalle and critical portions performed by theresident/fellow. I reviewed the resident/fellow?s documentation and discussedthe patient with the resident/fellow. I agree with the resident/fellow?smedical decision making as documented in the resident?s note.I personally evaluated the patient (as noted in the above attestation) [id number] Provider ? Inpatient Certification StatementN/A - observationpatient/other outpatient visits Electronic Signatures:Jacques Hinds (Resident)) (Signed 19-Jan-2018 07:52)Authored: History & Physical Reviewed, Signatures/Attestation/Certifica Omer Gautam) (Signed 19-Jan-2018 08:12)Authored: Signatures/Attestation/Certifica tionCo-Signer: History & Physical Reviewed, Signatures/Attestation/Certifica tion Last Updated: 19-Jan-2018 08:12 by Omer Mcnally) [facility] OPERATIVE REPORTon 8 OPERATIVE REPORT [facility] [place], [place] [address]Patient Name: MALA SANTIAGOMRN: [id number]: [id number] Number: [id number] of Service: 01/19/2018Patient Location: [id number] Type: OSurgeon: Justo Collins Type: Operative ReportsPREOPERATIVE DIAGNOSIS: Right carpal tunnel syndrome.POSTOPERATIVE DIAGNOSIS: Right carpal tunnel syndrome.OPERATION/PROCEDURE: Right carpal tunnel decompression.SURGEON: PAT CollinsISTANT(S): ANESTHESIA: Local.INDICATIONS: The patient is a 72-year-old female with symptomatic right carpal tunnel syndrome. She presents for carpal tunnel decompression. Preoperatively, the right upper extremity was identified and marked for surgery. Informed consent was completed.DESCRIPTION OF PROCEDURE: The patient was brought to the operating room and placed supine on the operating room table. Time-out procedure was performed to verify correct patient, procedure, and operative site. Local anesthetic infiltrated around the base of the right palm. Right upper extremity was then prepped and draped in the usual sterile fashion. Limb was exsanguinated, and tourniquet was inflated to 250 mmHg.A longitudinal incision was created in the central aspect of the proximal palm. Sharp dissection was carried down through the skin and subcutaneous tissue. Deep retractors were placed. Transverse carpal ligament was identified and under direct visualization, was divided longitudinally from distal to proximal. Complete median nerve decompression was obtained. The wound was irrigated and closed in interrupted fashion. A sterile bandage was applied, and the tourniquet was deflated. The patient was then transferred back to the recovery room in stable condition.Postoperative plan will be for her to be discharged home once comfortable. She can remove her bandage on postop day #4 and begin wound care and gentle activities as instructed. Return to clinic in 2 weeks for wound check and suture removal.I was the attending for the procedure, and I was present for the entire case.Omer Mcnally MD ESTTT: 01/19/2018 11:11 PM ESTDICTATION NUMBER: [id number] JOB NUMBER: [id number]:Houston Brown DO, [id number] Signed by Dr. Omer Mcnally 01/23/2018 01:59:11 PM Normal [facility] Patient Profile - Preop v2on 01-19-2018 Patient Profile - Preop v2 Profile:Initial Info:How to be AddressedShelliaSpoken Language PreferredEnglishAre you currently using the Personal Electronic Health Record or [facility] HOSPITALyetated Reason for Admissioncarpal tunnelPrimary Contact Name and NumberShelliaLimitations on Visitors/Phone CallsnonePatient BelongingsnoneMedications Brought to Hospitalno General Health:Weight in kg94.8 kilogram(s)Weight in glc743 pound(s)Weight MethodstatedHeight in cm154.9 centimeter(s)Height in feet5 feetHeight in inches1 inch(es)Height MethodstatedBMI (kg/m2)39.509 square meterPatient or Family Member Reaction to Anesthesiano previous reactionBlood Avoidance/RestrictionsnonePrevio us Transfusion Reactionno Health Mgmt:Symptoms/Conditions Managed at Homeimmunological; hematologic; neurologicalHematologic Symptoms/Conditionsleg swelling due to veinsImmunological Symptoms/Conditionshep BNeurological Symptoms/Conditionsbrain surgeryBarriers to Managing Healthnone Relationship/Environ:Lives WithspouseLiving ArrangementshouseResource/Enviro nmental ConcernsnoneAnticipated Transition TohomeServices Anticipated at Transitionnone Substance:Current or Former Substance Use YES: Alcohol Risk Screens:Advance Directive MedicalnoAdvance Directive Information Givenpatient/family declinedDuring the past month, have you often been bothered by feeling down, depressedor hopeless?noDuring the past month, have you often had little interest or pleasure in doingthings?noHave you had any thoughts of harming yourself?noHave you had any thoughts of harming anyone else?noPatient is Able to be Assessed for LearningyesFactors Influencing Readiness to LearnnoneFactors that Impact Ability to LearnnoneDevices/Methods Used to CommunicateglassesLearning Preferencesverbal instructionCultural ConsiderationsnoneDevelopmental ConsiderationsnoneReligious ConsiderationsnoneOther learner availablenoFalls RiskPatient location auto qualifies him/her for HIGH RISK.Are there any cultural, spiritual, yazidi practices/values/needs that areimportant for us to know?noPain Scalenumerical 0-10Pain Scale Educationteaching providedCurrent Pain Level0 = NoneAcceptable Pain Level0 = NoneChronic Painno Information Review:? Allergies, Home Meds and Significant Events have been Reviewed and Verifiedwith Patient/Familyyes Allergy, Intolerance, Adverse Event: Allergies:? NKDA: Active? Nickel: Environment, Swelling/Edema, Active Significant Events:19-Jan-2018? aneurism brain surgery x 2: Past Surgical History, Active Electronic Signatures:Giselle Storey) (Signed 19-Jan-2018 07:58)Authored: Profile, Additional Information Last Updated: 19-Jan-2018 07:58 by Giselle Storey) [facility] Post Operative Note - ORon 0 01-19-2018 Post Operative Note - OR Post Operative Note: Post-Procedure Diagnosis: R CTSProcedure: R CTRSurgeon: MaloneResident/Fellow/Other Leather Craftsman: noneAnesthesia: localEstimated Blood Loss (mL): 0Specimen: noFindings: CTS Signature/Cosignature/Attestatio n:Attending AttestationI performed the procedure without a resident Electronic Signatures:Omer Mcnally) (Signed 19-Jan-2018 08:59)Authored: Post Operative Note, Signature/Cosignature/Attestatio n Last Updated: 19-Jan-2018 08:59 by Omer Mcnally) Normal [facility] Preop Checkliston 01-19-2018 Preop Checklist Preop Checklist:Preo p Checklist:? Arrival [id number]? Arrival Time07:46? Procedure Typeright carpal tunnel release? NPO [id number] 00:00? ID Band Onyes? Allergy Bandyes? Consent Signedpending? H&P Completepending? Anesthesia Assessment Completedpending? EKG Performednot ordered? Chest X-Ray Performednot ordered? Chlorhexadine Bath Givennot applicable? Soap and water bath with hair shampoo the night before surgeryno? SCD's Appliedno? AUGIE Hose Appliedno? Denturesnot applicable? Prostheticsnot applicable? Hearing Aidsnot applicable? Valuables Securedplaced under cart? Glasses / Contactsplaced under cart with clothes? Bowel Prepno Cardiovascular Assessment:? Radial Pulsespalpable? Extremitieswarm Respiratory Assessment:? Respirationsunlabored Neurological Assessment:? Level of Consciousnessalert, oriented? Mobilitymoves all extremities? Able to Express Selfyes? Age Appropriateyes? Emotional Statuscalm Preop Education:? Surgical Site Infection Preventionyes? Pain Scales and Managementyes Language / Communication:? Language / CommunicationEnglish Electronic Signatures:Emma Goode (SONIA) (Signed 19-Jan-2018 07:48)Authored: Preop Checklist Last Updated: 19-Jan-2018 07:48 by Emma Goode (SONIA) Normal [facility] Initial Visit (Orthopaedic S urgery)on 12-29-2017 Initial Visit (Orthopaedic Surgery) Chief ComplaintNPV/ RESULTS- EMG (R) Carpal tunnel History of Present IllnessColleen is a 72-year-old [id number] female who presents today for evaluation of right hand numbness and tingling involving the radial 3 digits. Symptoms of been present for perhaps 2 years and are progressive in nature. Her hands are getting worse. She is dropping things. She is having difficulty sleeping at night. At times she has pain that radiates up into her forearm. She has tried bracing at nighttime which has not had any impact. She has not had any injections. She has recently completed EMG testing with abnormal results.Patients' self reported past medical history, medications, allergies, surgical history, family and social history as well as a 10 point review of systems has been documented in the new patient intake form and scanned into the patient's electronic medical record. Pertinent findings are documented in the HPI.Physical Examination Findings:Constitutional: Appears well-developed and well-nourished.Head: Normocephalic and atraumatic.Eyes: Pupils are equal and round.Cardiovascular: Intact distal pulses. Respiratory: Effort normal. No respiratory distress.Neurologic: Alert and oriented to person, place, and time.Skin: Skin is warm and dry.Hematologic / Lymphatic: No lymphedema, lymphangitis.Psychiatric: normal mood and affect. Behavior is normal. Musculoskeletal: Right upper extremity with mild degenerative changes in the hand. No thenar atrophy. Palpable radial pulse. Full digital flexion. Diminished sensation radial 3 digits. Positive Tinel's sign over the transverse carpal ligament.Personal review of EMG study dated November 30, 2017 reveals evidence of carpal tunnel syndrome graded moderately severe with evidence of demyelination.Impression: Right carpal tunnel syndrome.Plan: We have discussed this condition. Treatment options have been discussed. She has already tried splinting without any significant improvement. She is not interested in injections. I have offered her carpal tunnel decompression surgery.We discussed risks, benefits, alternatives and anticipated post op course including time away from work and activities following surgical treatment for the patient's condition.. This is major surgery with identifiable risks. No guarantees for success have been provided. The patient has expressed understanding and has elected to pursue operative treatment.She will contact my office to schedule this procedure in the near future.For Surgical Planning:Diagnosis: Right carpal tunnel syndromeProcedure: Right carpal tunnel releaseCPT: [id number]: MacDuration: 20 minutesSpecial Equipment Needed: NoneLocation: [place]lakeInitial Post Operative Visit: 2 weeksSiva Wyman ProfessorCrystal Clinic Orthopedic Center School of MedicineDepartment of Orthopaedic SurgeryChief of Hand and Upper Extremity SurgeryCleveland Clinic Mentor HospitalDictation performed with the use of voice recognition software. Syntax and grammatical errors may exist. Current Meds HydroCHLOROthiazide 25 MG Oral Tablet;Therapy: (Recorded:[id number]) to Recorded Dispense: 0 Days ; #: Sufficient TABS; Refill: 0; ARLETTE = N; Record; Last Updated By: Nora Park; 12/29/2017 2:55:33 PM Metoprolol Tartrate 25 MG Oral Tablet;Therapy: (Recorded:29Dec2017) to Recorded Dispense: 0 Days ; #: Sufficient TABS; Refill: 0; ARLETTE = N; Record; Last Updated By: Nora Park; 12/29/2017 2:55:33 PM Vitals Vital Signs Recorded: 29Dec2017 02:90PRFlebxf7 ft Hbivss437 lb BMI Fzpmydscwf74.33BSA Calculated1.81 Diagnoses/Problems Right carpal tunnel syndrome (354.0) (G56.01) Signatures Electronically signed by : Omer Mcnally MD,; Dec 29 2017 8:44PM EST (Author) Normal [facility] Vital Signs Date Time Vital Sign Value Performing Clinician Facility 08-17-2024 10:25-0500 Body height 154.94 cm [facility] 08-17-2024 10:25-0500 Body mass index (BMI) [Ratio] 37.3 kg/m2 [facility] 08-17-2024 10:25-0500 Body weight 89.52 kg [facility] 08-17-2024 10:25-0500 Diastolic blood pressure 78 mm[Hg] [facility] 08-17-2024 10:25-0500 Heart rate 64 /min [facility] 08-17-2024 10:25-0500 Respiratory rate 12 /min [facility] 08-17-2024 10:25-0500 Systolic blood pressure 133 mm[Hg] [facility] 01-31-2024 14:12-0400 Body height 154.94 cm [facility] 01-31-2024 14:12-0400 Body mass index (BMI) [Ratio] 35.2 kg/m2 [facility] 01-31-2024 14:12-0400 Body weight 84.59 kg [facility] 01-31-2024 14:12-0400 Diastolic blood pressure 83 mm[Hg] [facility] 01-31-2024 14:12-0400 Heart rate 86 /min [facility] 01-31-2024 14:12-0400 Respiratory rate 12 /min [facility] 01-31-2024 14:12-0400 Systolic blood pressure 143 mm[Hg] [facility] 09-09-2023 10:00-0500 Body height 154.94 cm Houston Ball Other [facility] Other 09-09-2023 10:00-0500 Body mass index (BMI) [Ratio] 36.88 kg/m2 Houston Ball Other [facility] Other 09-09-2023 10:00-0500 Body weight 88.54 kg Houston Ball Other [facility] Other 09-09-2023 10:00-0500 Diastolic blood pressure 77 mm[Hg] Houston Ball Other [facility] Other 09-09-2023 10:00-0500 Respiratory rate 12 /min Houston Ball Other [facility] Other 09-09-2023 10:00-0500 Systolic blood pressure 168 mm[Hg] Houston Ball Other [facility] Other 05-13-2023 11:00-0400 Body height 154.94 cm Houston Ball Other [facility] Other 05-13-2023 11:00-0400 Body mass index (BMI) [Ratio] 36.61 kg/m2 Houston Ball Other [facility] Other 05-13-2023 11:00-0400 Body weight 87.91 kg Houston Ball Other [facility] Other 05-13-2023 11:00-0400 Diastolic blood pressure 81 mm[Hg] Houston Ball Other [facility] Other 05-13-2023 11:00-0400 Respiratory rate 12 /min Houston Ball Other [facility] Other 05-13-2023 11:00-0400 Systolic blood pressure 153 mm[Hg] Houston Ball Other [facility] Other 09-21-2022 11:00-0500 Body height 154.94 cm Houston Ball Other [facility] Other 09-21-2022 11:00-0500 Body mass index (BMI) [Ratio] 35.14 kg/m2 Houston Ball Other [facility] Other 09-21-2022 11:00-0500 Body weight 84.37 kg Houston Ball Other [facility] Other 09-21-2022 11:00-0500 Diastolic blood pressure 72 mm[Hg] Houston Ball Other [facility] Other 09-21-2022 11:00-0500 Respiratory rate 12 /min Houston Ball Other [facility] Other 09-21-2022 11:00-0500 Systolic blood pressure 112 mm[Hg] Houston Ball Other [facility] Other Encounters Encounter Date Encounter Type Care Provider Facility Start: 08-17-2024 End: 08-17-2024 ambulatory [facility] Work Phone: Start: 08-17-2024 End: 08-17-2024 Patient encounter procedure [facility] Work Phone: Start: 07-14-2024 Patient encounter procedure [facility] Start: 07-13-2024 Non-patient / Non-visit [facility] Work Phone: Start: 03-05-2024 End: 03-05-2024 ambulatory MO[facility] Not Available Start: 02-28-2024 End: 02-28-2024 ambulatory [facility] Not Available Start: 01-31-2024 End: 01-31-2024 ambulatory [facility] Work Phone: Start: 01-31-2024 End: 01-31-2024 Patient encounter procedure [facility] Work Phone: Start: 11-21-2023 Non-patient / Non-visit [facility] Work Phone: Start: 09-09-2023 End: 09-09-2023 ambulatory Houston Brown Other [facility] Other Start: 09-09-2023 Office outpatient vi sit 25 minutes Houston Brown [facility] Start: 09-09-2023 Telephone encounter Houston [facility]ION [facility] Start: 07-21-2023 End: 07-21-2023 ambulatory Houston Brown Other [facility] Other Start: 07-21-2023 Telephone encounter Houston [facility] Start: 05-13-2023 End: 05-13-2023 ambulatory Houston Brown Other [facility] Other Start: 05-13-2023 Patient encounter procedure Houston Brown [facility] Start: 04-21-2023 End: 04-21-2023 ambulatory Houston Brown Other [facility] Other Start: 04-21-2023 Telephone encounter Houston [facility]ARRION [facility] Start: 09-28-2022 End: 09-28-2022 ambulatory Houston Brown Other [facility] Other Start: 09-28-2022 Telephone encounter Houston [facility]ARRION [facility] Start: 09-23-2022 End: 09-24-[address] HOUSTON BROWN Facility: Start: 09-23-2022 Telephone encounter Houston CARRION [facility] Start: 09-21-2022 End: 09-22-[address] HOUSTON BROWN Facility:[facility] Start: 09-21-2022 Office outpatient vi sit 25 minutes Houston Brown [facility] Start: 09-21-2022 Telephone encounter [facility] Start: 09-07-2022 End: 09-07-2022 ambulatory Houston Brown Other [facility] Other Start: 09-07-2022 Telephone encounter Houston Brown [facility] Start: 01-22-2022 End: 01-30-[address] HOUSTON BROWN Facility:[facility] Start: 01-20-2022 Adult health examination Houston Brown Other [facility] Other Start: 10-01-2021 End: 10-02-[address] HOUSTON BROWN Facility:[facility] Start: 09-29-2021 End: 09-30-[address] HOUSTON BROWN Facility:[facility] Start: 02-02-2018 Ambulatory Omer Mcnally Faci lity:[id number] Start: 01-19-2018 End: 01-19-2018 Ambulatory Omer Mcnally Facility:[facility] [place] [facility] Procedures Date Procedure Procedure Detail Performing Clinician Start: 01-16-2019 Screening for malign ant neoplasm of colon Houston Brown Other Start: 01-19-2018 Neuroplasty &/transp os median nrv carpal jean Omer Mcnally Start: 01-13-2018 General examination of patient Houston Brown Other Start: 01-13-2018 Screening for osteoporosis Houston Brown Other Start: 01-13-2018 Screening mammography B enjaana m Brown Other Screening for malign ant neoplasm of breast Houston Brown Other Plan of Treatment Date Care Activity Detail Author Comprehensive metabo lic 1999 panel - Serum or Plasma [facility] enter Comprehensive metabo lic 1999 panel - Serum or Plasma [facility] enter [facility] Immunizations Immunization Date Immunization Notes Care Provider Fa cility 05-21-2022 influenza virus vaccine, split virus (incl. purified surface antigen) Houston Brown Other [facility] Other 05-21-2022 influenza virus vaccine, unspecified formulation [facility] 05-27-2021 influenza virus vaccine, split virus (incl. purified surface antigen) Houston Brown Other [facility] Other 05-27-2021 influenza virus vaccine, unspecified formulation [facility] 05-14-2020 influenza virus vaccine, split virus (incl. purified surface antigen) Houston Brown Other [facility] Other 05-14-2020 influenza virus vaccine, unspecified formulation [facility] 06-01-2019 influenza virus vaccine, split virus (incl. purified surface antigen) Houston Brown Other [facility] Other 06-01-2019 influenza virus vaccine, unspecified formulation [facility] 01-16-2019 pneumococcal polysaccharide vaccine, 23 valent Houston Brown Other [facility] 05-30-2018 influenza virus vaccine, split virus (incl. purified surface antigen) Houston Brown Other [facility] Other 05-30-2018 influenza virus vaccine, unspecified formulation [facility] 01-13-2018 influenza virus vaccine, split virus (incl. purified surface antigen) Houston Brown Other [facility] Other 01-13-2018 influenza virus vaccine, unspecified formulation [facility] 01-13-2018 pneumococcal conjuga te vaccine, 13 valent Houston Brown Other [facility] 01-13-2018 pneumococcal Conjuga te, unspecified formulation; Translations: [Need for prophylactic vaccination against Streptococcus pneumoniae (pneumococcus)] Houston Brown Other [facility] Other 07-30-2015 diphtheria, tetanus toxoids and acellular pertussis vaccine, unspecified formulation Houston Brown Other [facility] Payers Date Payer Category Payer Medicare [id number] 1957 Unknown [id number] 1957 Unknown [id number] 1959 Unknown [id number] 1945 Unknown [id number] 1945 Unknown [id number] 1947 Unknown [id number] 1947 Unknown [id number] 1947 Unknown [id number] 1947 Unknown [id number] 1945 Unknown [id number] Medicare [id number] Private Health Insurance [employer] [id number] Social History Date Type Detail Facility Unknown if ever smoked [facility] Other Sex Assigned At Sex Assigned At Bir th [facility] Other Start: 1945 Sex Assigned At Female F [facility] Tobacco smoking status NHIS Unknown if ever smoked [facility] Work Phone: Start: 08-17-2024 Sex Female (finding) [place] Evaluation note 09-09-2023 Note Date & Type Note Facility 09-09-2023 Evaluation note Encounter Date Diagnosis Assessment Notes Sep, Primary hypertension (ICD-10 - I10) [facility] Other Evaluation note 09-09-2023 Note Date & Type Note Facility 09-09-2023 Evaluation note Encounter Date Diagnosis Assessment Notes Sep, Primary hypertension (ICD-10 - I10) This patient is instructed to consume a healthy, low-fat, low-salt diet. They are also encouraged to continue exercise to achieve/maintain a normal BMI. Patient is instructed on home BP measurements: - rest for 5 minutes w/o talking.- positioned w/ feet on floor and arm supported.- average best 2/3 readings w/ goal < 135/85.- update office w/ home readings in 2 weeks. Check labs - consider adjusting antihypertensive treatment - ARB/diuretic added to Metoprolol? - change Metoprolol to Coreg? Sep, Gastroesophageal reflux disease with esophagitis without hemorrhage (ICD-10 - K21.00) Avoid lying flat after eating. Avoid eating 2 hours prior to bedtime. Smaller, frequent meals may be better tolerated.Weight loss if overweight.PPI with any heartburn.Monitor for dysphagia. Sep, MCI (mild cognitive impairment) (ICD-10 - G31.84) Requires assistance w/ IADL provides help w/ all ADL. She does not drive anymore. Sep, Unsteadiness on feet (ICD-10 - R26.81) Multifactorial: - remote hx of craniotomy, placement of STUMP SHOOTER shunt - hx of ruptured cerebral aneurysm Encouraged to use walker for stability. Instructed on fall precautions Sep, Recurrent major depressive disorder, in full remission (ICD-10 - F33.42) Stable, mood happy Continue medication w/o interruption Aware of adverse effects w/ abrupt w/d of medications Sep, Chronic venous insufficiency (ICD-10 - I87.2) Avoid salt and elevate lower extremities, support stockings, inspect legs and feet daily for blisters and ulcerations. Sep, History of cerebral aneurysm (ICD-10 - Z86.79) Sep, Carotid bruit, unspecified laterality (ICD-10 - R09.89) Continue primary prevention measures. Reviewed s/s stroke and instructed to go to ER for any suspicious symptoms. Sep, Anemia, unspecified type (ICD-10 - D64.9) Unknown etiology Denies s/s GIB Denies abdominal pain, N/V, heartburn, dysphagia, melena or hematochezia Sep, Fatigue, unspecified type (ICD-10 - R53.83) Lab evaluation: BS, CBC, TSH [facility] Other Evaluation note 05-13-2023 Note Date & Type Note Facility 05-13-2023 Evaluation note Encounter Date Diagnosis Assessment Notes May, Medicare annual wellness visit, subsequent (ICD-10 - Z00.00) Personalized health advice was given to the beneficiary including a written plan for screenings discussed and provided. Advanced care planning reviewed and/or information given as requested. Additional counseling was provided here today in regards to, [ ]. The above visit was performed by [ ], under direct supervision of [ ]. Document reviewed and amended by provider signed below. May, Primary hypertension (ICD-10 - I10) This patient is instructed to consume a healthy, low-fat, low-salt diet. They are also encouraged to continue exercise to achieve/maintain a normal BMI. Patient is instructed on home BP measurements: - rest for 5 minutes w/o talking- positioned w/ feet on floor and arm supported- average best 2/3 readings w/ goal < 135/85 May, Gastroesophageal reflux disease with esophagitis without hemorrhage (ICD-10 - K21.00) Diet instructions: Smaller portions, avoid eating and laying flat, avoid eating or drinking prior to bedtime. Weight loss. May, MCI (mild cognitive impairment) (ICD-10 - G31.84) Requires family assistance w/ IADL. No behavioral problems May, Unsteadiness on feet (ICD-10 - R26.81) Fall precautions. Use assistive device for stability May, Recurrent major depressive disorder, in full remission (ICD-10 - F33.42) Stable, continue healthy diet and keep active. No change in medical therapy May, Iron deficiency anemia, unspecified iron deficiency anemia type (ICD-10 - D50.9) No active s/s bleeding. Denies N/V, heartburn or dysphagia Denies abdominal pain, melena or hematochezia May, Chronic venous insufficiency (ICD-10 - I87.2) Avoid salt and elevate lower extremities, support stockings, inspect legs and feet daily for blisters and ulcerations. 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 Denies headache spinnine or lightheadedness Denies focal neurologic deficits May, Fatigue, unspecified type (ICD-10 - R53.83) May, Screening mammogram for breast cancer (ICD-10 - Z12.31) Instructed patient on monthly SBE and yearly mammograms. May, Other Check labs [facility] Other Evaluation note 09-28-2022 Note Date & Type Note Facility 09-28-2022 Evaluation note Encounter Date Diagnosis Assessment Notes Sep, History of cerebral aneurysm (ICD-10 - Z86.79) Sep, STUMP SHOOTER (ventriculope ritoneal) shunt status (ICD-10 - Z98.2) Sep, Ataxia (ICD-10 - R27.0) Sep, Confusion (ICD-10 - R41.0) [facility] Other Evaluation note 09-21-2022 Note Date & Type Note Facility 09-21-2022 Evaluation note Encounter Date Diagnosis Assessment Notes Sep, Iron deficiency anemia, unspecified iron deficiency anemia type (ICD-10 - D50.9) [facility] Other Evaluation note 09-21-2022 Note Date & Type Note Facility 09-21-2022 Evaluation note Encounter Date Diagnosis Assessment Notes Sep, Primary hypertension (ICD-10 - I10) This patient is instructed to consume a healthy, low-fat, low-salt diet. They are also encouraged to continue exercise to achieve/maint ain a normal BMI. Sep, Gastroesophageal reflux disease with esophagitis without hemorrhage (ICD-10 - K21.00) Diet instructions: Smaller portions, avoid eating and laying flat, avoid eating or drinking prior to bedtime. Weight loss. Sep, MCI (mild cognitive impairment) (ICD-10 - G31.84) Remains functional w/ some assistance from spouse. Continues to drive and cook w/o difficulty Sep, Unsteadiness on feet (ICD-10 - R26.81) Hx of aneurysm rupture, required surgery and STUMP SHOOTER shunt placement. Symptoms chronic but worsening. Check labs, imaging and referral to Neurology Sep, Recurrent major depressive disorder, in full remission (ICD-10 - F33.42) Stable, requesting to wean Venlavaxine. Will decrease to 75mg for now. Sep, Iron deficiency anemia, unspecified iron deficiency anemia type (ICD-10 - D50.9) Check CBC and Fe. If remains anemic, would schedule for EGD and Scope Sep, Chronic venous insufficiency (ICD-10 - I87.2) Avoid salt and elevate lower extremities, support stockings, inspect legs and feet daily for blisters and ulcerations. 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 Continue Fosamax Sep, History of cerebral aneurysm (ICD-10 - Z86.79) s/p STUMP SHOOTER shunt placement Sep, Other Healthy diet and keep active [facility] Other Evaluation note Note Date & Type Note Facility Evaluation note No Information [facility] [facility] [employer] Other Evaluation note Note Date & Type Note Facility Evaluation note Diagnosis Onset Date Carotid stenosis, left acute Chronic venous insufficiency of lower extremity acute GERD (gastroesophageal reflux disease) acute Hx of cerebral aneurysm repair acute Hypertension acute Major depression acute MCI (mild cognitive impairment) acute Nicotine addiction acute [facility] Work Phone: Evaluation note Note Date & Type Note Facility Evaluation note Diagnosis Onset Date Resolution Chronic venous insufficiency of lower extremity acute August 17 9:56am IFG (impaired fasting glucose) acute August 17 9:56am Major depression acute August 17, 2024 9:56am Medicare annual wellness visit, subsequent acute August 17, 2024 9:56am [facility] Work Phone: History general Narrative - Reported Note Date & Type Note Facility History general Narrative - Reported Type Medical History hypertension Medical History chronic depression Medical History aneurysm x 3 Medical History Generally unsteady Medical History Gastroesophageal ref lux disease with esophagitis without hemorrhage Medical History Tremor of left hand Medical History Nicotine dependence, cigarettes, in remission Medical History Chronic venous insufficiency Medical History Essential hypertension Medical History Anemia Medical History Malaise Medical History Ataxia 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 Medical History History of cerebral aneurysm Medical History Thrombocytopenia Medical History Irregular heart beat Medical History Pain of left upper extremity Medical History Vitamin D deficiency Medical History Depression, major, recurrent, mi ld Medical History Osteoporosis, postmenopausal Medical History Depression, major, in remission Medical History Primary insomnia Medical History Obesity (BMI 30-39.9) Medical History MCI (mild cognitive impairment) Surgical History aneurysm repair Hospitalization History see surgical history [facility] Other Summary Purpose Family History Relationship Condition Age at Onset Recorded Date/T angel luis father Unknown History of stroke Unknown Heart disease Unknown Malignant neoplasm Unknown Hypertension Unknown family member Unknown mother Heart disease Unknown Unknown Advance Directives Advance Directive Response Recorded Date/ Time Advance Directives No September 09, 2023 11:55am Advance Directive Response Recorded Date/ Time Advance Directives No September 09, 2023 10:55am Chief Complaint and Reason for Visit Chief Complaint Amb Documentation 4 month follow up Reason for Visit Carotid stenosis, le ft Chronic venous insufficiency of lower extremity GERD (gastroesophageal reflux disease) Hx of cerebral aneurysm repair Hypertension Major depression MCI (mild cognitive impairment) Nicotine addiction Chief Complaint Admit Date CC Adult Risk Stratification July 132023 1:45pm wellness August 17, 2024 9 :56am Reason for Visit Admit Date Chronic venous insufficiency of lower ex tremity August 17, 2024 9:56am IFG (impaired fasting glucose) August 012024 9:56am Major depression August 17, 2024 9 :56am Medicare annual wellness visit, subseque nt August 17, 2024 9:56am Additional Source Comments INFORMATION SOURCE (unrecogn ized section and content) DATE CREATED AUTHOR 02/02/2018 [facility] DATE CREATED AUTHOR AUTHOR'S ORGANIZ ATION 02/02/2018 [employer] DATE CREATED AUTHOR AUTHOR'S ORGANIZ ATION 09/28/2022 [facility] DATE CREATED AUTHOR AUTHOR'S ORGANIZ ATION 03/06/2024 [facility] EPIC REASON FOR VISIT (unrecogniz ed section and content) prescription refillNo Inform ation4 MONTH FOLLOW UPLab ResultsNo InformationNo InformationNo InformationWellnessWellnessWellnessrefillNo Information4 month Follow up Care Teams (unrecognized sec tion and content) Team Status: Active Member Role Status Dates Houston Brown , DO Primary Care Provider Active Team Status: Active Member Role Status Dates Houston Brown , Primary Care Provider Active Start: November 21, 2023 CHUCK Salcedo Attending Provider Active Start : November 21, 2023 Team Status: Inactive Member Role Status Dates Houston Brown , DO Primary Care Provide r, Attending Provider Active Start: January 31, 2024 End: January 31, 2024 Team Status: Active Member Role Status Dates Houston Brown , DO Primary Care Provide r, Attending Provider Active Start: July 13, 2024 Team Status: Inactive Member Role Status Dates Houston Brown , DO Primary Care Provide r, Attending Provider Active Start: August 17, 2024 End: August 17, 2024 Goals (unrecognized section and content) Goals may be documented in a n alternate section FOR RECORDS PERTAINING TO PATIENTS WHO ARE OR HAVE BEEN ENROLLED IN A CHEMICAL DEPENDENCY/SUBSTANCEABUSE PROGRAM, SOME INFORMATION MAY BE OMITTED. This clinical summary was aggregated from multiple sources. Caution should be exercised in using it in the provision of clinical care. This summary normalizes information from multiple sources, and as a consequence, information in this document may materially change the coding, format and clinical context of patient data. In addition, data may be omitted in some cases. CLINICAL DECISIONS SHOULD BE BASED ON THE PRIMARY CLINICAL RECORDS. [employer] provides no warranty or guarantee of the accuracy or completeness of information in this document.
[2024-08-24 09:03] LABS: Basophils Percent Auto 0.5 % (0.2-2.0); Eosinophils Absolute Auto 0.3 10^3/uL (0.0-0.7); Hematocrit 37.5 % (36.0-48.0); Hemoglobin 11.4 g/dL (12.0-16.0); Immature Granulocytes Abs Auto 0.02 10^3/uL (0.00-0.03); Immature Granulocytes Pct Auto 0.3 % (0.0-0.5); Lymphocytes Absolute Auto 1.7 10^3/uL (1.2-3.8); Lymphocytes Percent Auto 21.9 % (20.5-60.0); Mean Corpuscular HGB Conc 30.4 g/dL (29.9-35.2); Mean Corpuscular Hemoglobin 25.4 pg (26.7-34.0); Mean Corpuscular Volume 83.5 fL (81.0-99.0); Mean Platelet Volume 13.2 fL (9.5-13.5); Monocytes Absolute Auto 0.9 10^3/uL (0.3-0.8); Neutrophils Absolute Auto 4.8 10^3/uL (1.4-6.5); Neutrophils Percent Auto 61.3 % (43.0-75.0); Platelet Count 224 10^3/uL (150-450); Red Blood Count 4.49 10^6/uL (4.20-5.40); Red Cell Distribution Width 14.3 % (11.0-15.0); White Blood Count 7.8 10^3/uL (4.0-11.0)
[2024-08-24 09:23] LABS: Estimated Average Glucose 123 mg/dL; Glycohemoglobin A1C 5.9 % (4.5-6.2)
[2024-08-24 09:43] LABS: Alanine Aminotransferase 12 U/L (14-59); Albumin Globulin Ratio 0.8; Albumin Level 3.3 g/dL (3.4-5.0); Alkaline Phosphatase 82 U/L (46-116); Anion Gap 13.6; Aspartate Amino Transferase 15 U/L (15-37); Bilirubin Total 0.6 mg/dL (0.2-1.0); Calcium 8.8 mg/dL (8.5-10.1); Carbon Dioxide 28.7 mmol/L (21.0-32.0); Chloride 104 mmol/L (98-107); Estimated GFR (African America 58 (>=60 mL/min/1.73m^2); Estimated GFR (Non-African Ame 48 (>=60 mL/min/1.73m^2); Globulin 4.2 g/dL; Glucose 99 mg/dL (74-106); Potassium 4.3 mmol/L (3.5-5.1); Sodium 142 mmol/L (136-145); Thyroid Stimulating Hormone 3.472 uIU/mL (0.358-3.740); Total Protein 7.5 g/dL (6.4-8.2)
== END 2024-08-24 08:02 | disposition home or self-care (01) ==
LOC: LAB 08:02
PROVIDERS: PCP Internal Medicine; Visit Provider Internal Medicine
DX: R73.01 Impaired fasting glucose (principal); R53.83 Other fatigue; I10 Essential (primary) hypertension; E55.9 Vitamin D deficiency, unspecified; I87.2 Venous insufficiency (chronic) (peripheral)
CPT/HCPCS: 36415; 80053; 82306; 83036; 84443; 85025

== ENCOUNTER 2024-09-13 11:31 | Outpatient (OUT) | payer MEDICARE, SELFPAY ==
--- NOTE | 2024-09-13 11:36 | MM_ITS ---
Patient Name: MALA SANTIAGO MR#: [id number] : 1945 Exam Date: 09/13/2024 Ordering Doctor: DR Houston Brown D.O. RADIOLOGY REPORT PROCEDURE: MM TOMOSYNTHESIS SCREENING BI COMPARISON: MG MAMM SCREEN 3D MARIAH CAD, 09/23/2022. MG MAMM SCREEN MARIAH W CAD, 03/03/2020. MG MAMM SCREEN MARIAH W CAD, 02/05/2019. MG MAMM SCREEN MARIAH W CAD, 02/02/2018. INDICATIONS: Screening Calculator Name NCI Breast Cancer Risk Assessment Tool 5 Year Breast Cancer Risk 1.70% Lifetime Breast Cancer Risk 3.50% Personal Breast Cancer No Personal Ovarian Cancer No Treatments None Family Cancers Aunt-maternal with breast cancer at age 60. LOCATION: [facility] BREAST COMPOSITION: There are scattered areas of fibroglandular density. FINDINGS: DIAGNOSTIC CATEGORY 2--BENIGN FINDING: RIGHT BREAST: No significant suspicious finding. Scattered benign-appearing calcifications are present. No significant change has occurred. LEFT BREAST: No significant suspicious finding. Scattered benign-appearing calcifications are present. No significant change has occurred. RECOMMENDATIONS: ROUTINE MAMMOGRAM AND CLINICAL EVALUATION IN 12 MONTHS. PLEASE NOTE: A NORMAL MAMMOGRAM DOES NOT EXCLUDE THE POSSIBILITY OF BREAST CANCER. A CLINICALLY SUSPICIOUS PALPABLE LUMP SHOULD BE BIOPSIED. Dictated by: John Hernandez M.D. on 09/14/2024 at 11:26 Approved by: John Hernandez M.D. on 09/14/2024 at 11:28
--- OUTSIDE RECORDS SUMMARY | 2024-09-13 11:36 | XMS_ITS | CCD ---
Author Organization [facility] Care Team Providers Care Strip Feeder Name Role Phone Omer Mcnally Unavailable Unavailable [...] sources) metal/nickel Propensity to adverse reactions rash [employer] Other (2 sources) patient allergy list reviewed by nurse or physicia Propensity to adverse reactions Comment:Done [employer] Other Medications Current Medications Medication Drug Class(es) [...] ( ) take 1 capsule by mo [facility] every twenty-four hours Esomeprazole Magnesium 40 MG [...] current use of drug therapy; Translations: [Other meterman (current) drug therapy] Episodic Other circulatory disease [...] spontaneously ruptured and the remaining were surgically treated.BREASTFEEDING PROGRAM COORDINATOR shunt placed. Other connective tissue disease (13 [...] and Corynebacterium diphtheriae antigens (medicinal product); Translations: [Pqottfjqyg-dipoths-h ertussis, combined [DTP] [DtaP]] Onset: 07-30-2015 Results Test Name Value Interpretation Reference Range Facility MG MAMM SCREEN 3D MARIAH CADon 09-23-2022 MG MAMM SCREEN 3D MARIAH CAD Patient: MALA SANTIAGOSrinivasan Exam Date: 09/23/2022 : 1945 Gender:F Ordering : DR HOUSTON BROWN D.O. Admission #: [id number] Family : Order #: [id number] CLICK HERE TO VIEW EXAM RADIOLOGY REPORT [...] breast cancer at age 62. LOCATION: [facility] BREAST COMPOSITION: Scattered areas fibroglandular density. FINDINGS: [...] M.D. on 09/24/2022 at 09:34 Normal [facility] CBC AUTO DIFFon 09-21-2022 BASO # 0.1 103/ul Normal 0.0-0.1 [facility] Comment on above: Performed By: #### TSH, CMP #### [facility] [address] [address] [address] Glynn Young Basophils/100 WBC (Bld) 0.6 % Normal 0.2-2.0 [facility] Comment on above: Performed By: #### TSH, CMP #### [facility] [address] [address] [address] Glynn Young EO # 0.3 103/ul Normal 0.0-0.7 [facility] Comment on above: Performed By: #### TSH, CMP #### [facility] [address] [place] [address] Dr. Glynn Young Eosinophils/100 WBC (Bld) 3.0 % Normal 0.9-7.0 [facility] Comment on above: Performed By: #### TSH, CMP #### [facility] [address] [place] [address] Dr. Glynn Young Erythrocyte distribution width (RBC) [Ratio] 15.3 % Critically high 11.0-15.0 [facility] Comment on above: Performed By: #### TSH, CMP #### [facility] [address] [place] [address] Dr. Glynn Young Hematocrit (Bld) [Volume fraction] 38.1 % Normal 36.0-48.0 [facility] Comment on above: Performed By: #### TSH, CMP #### [facility] [address] [place] [address] Dr. Glynn Young Hemoglobin (Bld) [Mass/Vol] 11.6 g/dL Critically low 12.0-16.0 [facility] Comment on above: Performed By: #### TSH, CMP #### [facility] [address] [place] [address] Dr. Glynn Young IG # 0.02 10e3/ul Normal 0.00-0.03 [facility] Comment on above: Performed By: #### TSH, CMP #### [facility] [address] [place] [address] Dr. Glynn Young IG % 0.2 % Normal 0.0-0.5 [facility] Comment on above: Performed By: #### TSH, CMP #### [facility] [address] [place] [address] Dr. Glynn Young LYMPH # 1.8 103/ul Normal 1.2-3.8 [facility] Comment on above: Performed By: #### TSH, CMP #### [facility] [address] [place] [address] Dr. Glynn Young Lymphocytes/100 WBC (Bld) 20.3 % Critically low 20.5-60.0 [facility] Comment on above: Performed By: #### TSH, CMP #### [facility] [address] [place] [address] Dr. Glynn Young MANUAL DIFF REQ NO Normal [facility] Comment on above: Performed By: #### TSH, CMP #### [facility] [address] [place] [address] Dr. Glynn Young MCH (RBC) [Entitic mass] 25.4 pg Critically low 26.7-34.0 [facility] Comment on above: Performed By: #### TSH, CMP #### [facility] [address] [place] [address] Dr. Glynn Young MCHC (RBC) [Mass/Vol] 30.4 g/dL Normal 29.9-35.2 [facility] Comment on above: Performed By: #### TSH, CMP #### [facility] [address] [place] [address] Dr. Glynn Young MCV (RBC) [Entitic vol] 83.4 fL Normal 81.0-99.0 [facility] Comment on above: Performed By: #### TSH, CMP #### [facility] [address] [place] [address] Dr. Glynn Young MONO # 1.0 103/ul Critically high 0.3-0.8 [facility] Comment on above: Performed By: #### TSH, CMP #### [facility] [address] [place] [address] Dr. Glynn Young Monocytes/100 WBC (Bld) 11.7 % Normal 1.7-12.0 [facility] Comment on above: Performed By: #### TSH, CMP #### [facility] [address] [place] [address] Dr. Glynn Young NEUT # 5.7 103/ul Normal 1.4-6.5 [facility] Comment on above: Performed By: #### TSH, CMP #### [facility] [address] [place] [address] Dr. Glynn Young Neutrophils/100 WBC (Bld) 64.2 % Normal 43.0-75.0 [facility] Comment on above: Performed By: #### TSH, CMP #### [facility] [address] [address] [address] Glynn Young Platelet mean volume (Bld) [Entitic vol] 10.7 fL Normal 9.5-13.5 [facility] Comment on above: Performed By: #### TSH, CMP #### [facility] [address] [address] [address] Glynn Young PLT 400 103/ul Normal 150-450 [facility] Comment on above: Performed By: #### TSH, CMP #### [facility] [address] [address] [address] Glynn Young RBC 4.57 106/ul Normal 4.20-5.40 [facility] Comment on above: Performed By: #### TSH, CMP #### [facility] [address] [address] [address] Glynn Young WBC 8.9 103/ul Normal 4.0-11.0 [facility] Comment on above: Performed By: #### TSH, CMP #### [facility] [address] [address] [address] Glynn Young Complete Blood Count and Dif rosina 09-21-2022 Anisocytosis Ql (Bld) [employer] Other Basophilic stippling LM Ql (Bld) [employer] [facility] [employer] Other RBC morphology finding Nom (Bld) [employer] [facility] [employer] Other Complete Blood Count and Diff [employer] Other Comprehensive Metabolic Pane buddy 09-21-2022 Albumin [Mass/Vol] 3.217363 g/dL 3.4-5.0 g/dL [employer] Other Calcium [Mass/Vol] 9.6080225 mg/dL 8.5-10.1 mg/dL [employer] Other CO2 [Moles/Vol] 29.40286883 mmol/L 21.0-3 2.0 mmol/L [employer] Other Creatinine [Mass/Vol] 1.21369088 mg/dL 0.55-1.02 mg/dL [employer] Other Potassium [Moles/Vol] 4.54825958 mmol/L 3.5-5.1 mmol/L [employer] Other Protein [Mass/Vol] 8.686929 g/dL 6.4-8.2 g/dL [employer] Other Urea nitrogen [Mass/Vol] 16.3377332 mg/dL 7.0-18.0 mg/dL [employer] Other Comprehensive Metabolic Panel see note [employer] Other Comprehensive Metabolic Panel 142 mmol/L 136-145 mmol/L [employer] Other Comprehensive Metabolic Panel 102 mg/dL 74-106 mg/dL [employer] Other Comprehensive Metabolic Panel 54 mL/min/1.73m2 Critically low >=60 mL/min/1.7 3m2 [employer] Other Comprehensive Metabolic Panel >60 mL/min/1.73m2 >=60 mL/min/1.7 3m2 [employer] Other Comprehensive Metabolic Panel 0.3 mg/dL 0.2-1.0 mg/dL [employer] Other Comprehensive Metabolic Panel 4.8 g/dL [employer] Other FERRITINon 09-21-2022 Ferritin [Mass/Vol] 13.0 ng/mL Normal 8.0-252.0 [facility] Comment on above: Performed By: #### FETIBC, B12FOL, FERR #### [facility] [address] [place] [address] Dr. Glynn Young IRON AND TIBCon 09-21-2022 % SATURATION 7.1 % Normal [facility] Comment on above: Performed By: #### FETIBC, B12FOL, FERR #### [facility] [address] [address] [address] Glynn Young Iron [Mass/Vol] 30.0 ug/dL Critically low 50.0-170.0 [facility] Comment on above: Performed By: #### FETIBC, B12FOL, FERR #### [facility] [address] [place] [address] Dr. Glynn Young TIBC DIRECT 420.0 ug/dL Normal 250.0-450. 0 [facility] Comment on above: Performed By: #### FETIBC, B12FOL, FERR #### [facility] [address] [place] [address] Dr. Glynn Young PROF 14(COMP METB)on 023 Albumin [Mass/Vol] 3.4 g/dL Normal 3.4-5.0 [facility] Comment on above: Performed By: #### TSH, CMP #### [facility] [address] [place] [address] Dr. Glynn Young Albumin/Globuli n [Mass ratio] 0.7 {ratio} [facility] Comment on above: Performed By: #### TSH, CMP #### [facility] [address] [place] [address] Dr. Glynn Young ALP [Catalytic activity/Vol] 86 U/L 46-116 U/L [facility] Comment on above: Performed By: #### TSH, CMP #### [facility] [address] [place] [address] Dr. Glynn Young ALT [Catalytic activity/Vol] 10 U/L Critically low 14-59 U/L [facility] Comment on above: Performed By: #### TSH, CMP #### [facility] [address] [place] [address] Dr. Glynn Young Anion gap [Moles/Vol] 10.7 mmol/L [facility] Comment on above: Performed By: #### TSH, CMP #### [facility] [address] [place] [address] Dr. Glynn Young AST [Catalytic activity/Vol] 12 U/L Critically low 15-37 U/L [facility] Comment on above: Performed By: #### TSH, CMP #### [facility] [address] [address] [address] Glynn Young Bilirubin [Mass/Vol] 0.3 mg/dL Normal 0.2-1.0 [facility] Comment on above: Performed By: #### TSH, CMP #### [facility] [address] [address] [address] Glynn Young Calcium [Mass/Vol] 9.0 mg/dL Normal 8.5-10.1 [facility] Comment on above: Performed By: #### TSH, CMP #### [facility] [address] [address] [address] Glynn Young Chloride [Moles/Vol] 106 mmol/L 98-107 mmol/L [facility] Comment on above: Performed By: #### TSH, CMP #### [facility] [address] [place] [address] Dr. Glynn Young CO2 [Moles/Vol] 29.8 mmol/L Normal 21.0-32.0 [facility] Comment on above: Performed By: #### TSH, CMP #### [facility] [address] [place] [address] Dr. Glynn Young Creatinine [Mass/Vol] 1.00 mg/dL Normal 0.55-1.02 [facility] Comment on above: Performed By: #### TSH, CMP #### [facility] [address] [place] [address] Dr. Glynn Young EGFR-AF [facility] >60 Normal >=60 [facility] Comment on above: Performed By: #### TSH, CMP #### [facility] [address] [place] [address] Dr. Glynn Young EGFR-NON AF [facility] 54 mL/min/1.73m2 Critically low >=60 [facility] Comment on above: Performed By: #### TSH, CMP #### [facility] [address] [place] [address] Dr. Glynn Young Globulin (S) [Mass/Vol] 4.8 g/dL Normal [facility] Comment on above: Performed By: #### TSH, CMP #### [facility] [address] [address] [address] Glynn Young Glucose [Mass/Vol] 102 mg/dL Normal 74-106 [facility] Comment on above: Performed By: #### TSH, CMP #### [facility] [address] [address] [address] Glynn Young Potassium [Moles/Vol] 4.5 mmol/L Normal 3.5-5.1 [facility] Comment on above: Performed By: #### TSH, CMP #### [facility] [address] [address] [address] Glynn Young Protein [Mass/Vol] 8.2 g/dL Normal 6.4-8.2 [facility] Comment on above: Performed By: #### TSH, CMP #### [facility] [address] [place] [address] Dr. Glynn Young Sodium [Moles/Vol] 142 mmol/L Normal 136-145 [facility] Comment on above: Performed By: #### TSH, CMP #### [facility] [address] [place] [address] Dr. Glynn Young Urea nitrogen [Mass/Vol] 16.0 mg/dL Normal 7.0-18.0 [facility] Comment on above: Performed By: #### TSH, CMP #### [facility] [address] [place] [address] Dr. Glynn Young Urea nitrogen/Creati nine [Mass ratio] 16.0 mg/mg [facility] Comment on above: Performed By: #### TSH, CMP #### [facility] [address] [address] [address] Glynn Young TSHon 09-21-2022 TSH 2.963 uIU/mL Normal 0.358-3.74 0 [facility] Comment on above: Performed By: #### TSH, CMP #### [facility] [address] [place] [address] Dr. Glynn Young VIT B12 AND FOLATEon 023 Cobalamin (Vitamin B12) [Mass/Vol] 510.0 pg/mL Normal 193.0-986. 0 [facility] Comment on above: Performed By: #### FETIBC, B12FOL, FERR #### [facility] [address] [place] [address] Dr. Glynn Young FOLATE 11.90 ng/mL Normal 8.60-58.90 [facility] Comment on above: Performed By: #### FETIBC, B12FOL, FERR #### [facility] [address] [place] [address] Dr. Glynn Young CBC AUTO DIFFon 10-01-2021 BASO # 0.0 103/ul Normal 0.0-0.1 [facility] Comment on above: Performed By: #### CBC #### [facility] [address] [place] [address] Dr. Glynn Young Basophils/100 WBC (Bld) 0.4 % Normal 0.2-2.0 [facility] Comment on above: Performed By: #### CBC #### [facility] [address] [place] [address] Dr. Glynn Young EO # 0.4 103/ul Normal 0.0-0.7 [facility] Comment on above: Performed By: #### CBC #### [facility] [address] [place] [address] Dr. Glynn Young Eosinophils/100 WBC (Bld) 4.7 % Normal 0.9-7.0 [facility] Comment on above: Performed By: #### CBC #### [facility] [address] [place] [address] Dr. Glynn Young Erythrocyte distribution width (RBC) [Ratio] 13.8 % Normal 11.0-15.0 [facility] Comment on above: Performed By: #### CBC #### [facility] [address] [place] [address] Dr. Glynn Young Hematocrit (Bld) [Volume fraction] 38.3 % Normal 36.0-48.0 [facility] Comment on above: Performed By: #### CBC #### [facility] [address] [place] [address] Dr. Glynn Young Hemoglobin (Bld) [Mass/Vol] 11.9 g/dL Critically low 12.0-16.0 [facility] Comment on above: Performed By: #### CBC #### [facility] [address] [place] [address] Dr. Glynn Young IG # 0.03 10e3/ul Normal 0.00-0.03 [facility] Comment on above: Performed By: #### CBC #### [facility] [address] [place] [address] Dr. Glynn Young IG % 0.3 % Normal 0.0-0.5 [facility] Comment on above: Performed By: #### CBC #### [facility] [address] [place] [address] Dr. Glynn Young LYMPH # 1.9 103/ul Normal 1.2-3.8 [facility] Comment on above: Performed By: #### CBC #### [facility] [address] [place] [address] Dr. Glynn Young Lymphocytes/100 WBC (Bld) 20.8 % Normal 20.5-60.0 [facility] Comment on above: Performed By: #### CBC #### [facility] [address] [place] [address] Dr. Glynn Young MANUAL DIFF REQ NO Normal [facility] Comment on above: Performed By: #### CBC #### [facility] [address] [place] [address] Dr. Glynn Young MCH (RBC) [Entitic mass] 28.1 pg Normal 26.7-34.0 [facility] Comment on above: Performed By: #### CBC #### [facility] [address] [place] [address] Dr. Glynn Young MCHC (RBC) [Mass/Vol] 31.1 g/dL Normal 29.9-35.2 [facility] Comment on above: Performed By: #### CBC #### [facility] [address] [place] [address] Dr. Glynn Young MCV (RBC) [Entitic vol] 90.3 fL Normal 81.0-99.0 [facility] Comment on above: Performed By: #### CBC #### [facility] [address] [address] [address] Glynn Young MONO # 0.9 103/ul Critically high 0.3-0.8 [facility] Comment on above: Performed By: #### CBC #### [facility] [address] [address] [address] Glynn Young Monocytes/100 WBC (Bld) 9.6 % Normal 1.7-12.0 [facility] Comment on above: Performed By: #### CBC #### [facility] [address] [address] [address] Glynn Young NEUT # 6.0 103/ul Normal 1.4-6.5 [facility] Comment on above: Performed By: #### CBC #### [facility] [address] [place] [address] Dr. Glynn Young Neutrophils/100 WBC (Bld) 64.2 % Normal 43.0-75.0 [facility] Comment on above: Performed By: #### CBC #### [facility] [address] [place] [address] Dr. Glynn Young Platelet mean volume (Bld) [Entitic vol] 11.4 fL Normal 9.5-13.5 [facility] Comment on above: Performed By: #### CBC #### [facility] [address] [place] [address] Dr. Glynn Young PLT 313 103/ul Normal 150-450 [facility] Comment on above: Performed By: #### CBC #### [facility] [address] [place] [address] Dr. Glynn Young RBC 4.24 106/ul Normal 4.20-5.40 [facility] Comment on above: Performed By: #### CBC #### [facility] [address] [place] [address] Dr. Glynn Young WBC 9.3 103/ul Normal 4.0-11.0 [facility] Comment on above: Performed By: #### CBC #### [facility] [address] [place] [address] Dr. Glynn Young CBC AUTO DIFFon 09-29-2021 BASO # 0.0 103/ul Normal 0.0-0.1 [facility] Comment on above: Performed By: #### CBC #### [facility] [address] [place] [address] Dr. Glynn Young Basophils/100 WBC (Bld) 0.5 % Normal 0.2-2.0 [facility] Comment on above: Performed By: #### CBC #### [facility] [address] [place] [address] Dr. Glynn Young EO # 0.4 103/ul Normal 0.0-0.7 [facility] Comment on above: Performed By: #### CBC #### [facility] [address] [place] [address] Dr. Glynn Young Eosinophils/100 WBC (Bld) 4.7 % Normal 0.9-7.0 [facility] Comment on above: Performed By: #### CBC #### [facility] [address] [place] [address] Dr. Glynn Young Erythrocyte distribution width (RBC) [Ratio] 13.9 % Normal 11.0-15.0 [facility] Comment on above: Performed By: #### CBC #### [facility] [address] [place] [address] Dr. Glynn Young Hematocrit (Bld) [Volume fraction] 39.5 % Normal 36.0-48.0 [facility] Comment on above: Performed By: #### CBC #### [facility] [address] [place] [address] Dr. Glynn Young Hemoglobin (Bld) [Mass/Vol] 12.1 g/dL Normal 12.0-16.0 [facility] Comment on above: Performed By: #### CBC #### [facility] [address] [place] [address] Dr. Glynn Young IG # 0.01 10e3/ul Normal 0.00-0.03 [facility] Comment on above: Performed By: #### CBC #### [facility] [address] [place] [address] Dr. Glynn Young IG % 0.1 % Normal 0.0-0.5 [facility] Comment on above: Performed By: #### CBC #### [facility] [address] [place] [address] Dr. Glynn Young LYMPH # 1.6 103/ul Normal 1.2-3.8 [facility] Comment on above: Performed By: #### CBC #### [facility] [address] [place] [address] Dr. Glynn Young Lymphocytes/100 WBC (Bld) 21.0 % Normal 20.5-60.0 [facility] Comment on above: Performed By: #### CBC #### [facility] [address] [place] [address] Dr. Gylnn Young MANUAL DIFF REQ NO Normal [facility] Comment on above: Performed By: #### CBC #### [facility] [address] [place] [address] Dr. Glynn Young MCH (RBC) [Entitic mass] 28.1 pg Normal 26.7-34.0 [facility] Comment on above: Performed By: #### CBC #### [facility] [address] [place] [address] Dr. Glynn Young MCHC (RBC) [Mass/Vol] 30.6 g/dL Normal 29.9-35.2 [facility] Comment on above: Performed By: #### CBC #### [facility] [address] [place] [address] Dr. Glynn Young MCV (RBC) [Entitic vol] 91.9 fL Normal 81.0-99.0 [facility] Comment on above: Performed By: #### CBC #### [facility] [address] [place] [address] Dr. Glynn Young MONO # 1.0 103/ul Critically high 0.3-0.8 [facility] Comment on above: Performed By: #### CBC #### [facility] [address] [place] [address] Dr. Glynn Young Monocytes/100 WBC (Bld) 13.2 % Critically high 1.7-12.0 [facility] Comment on above: Performed By: #### CBC #### [facility] [address] [place] [address] Dr. Glynn Young NEUT # 4.7 103/ul Normal 1.4-6.5 [facility] Comment on above: Performed By: #### CBC #### [facility] [address] [place] [address] Dr. Glynn Young Neutrophils/100 WBC (Bld) 60.5 % Normal 43.0-75.0 [facility] Comment on above: Performed By: #### CBC #### [facility] [address] [place] [address] Dr. Glynn Young Platelet mean volume (Bld) [Entitic vol] 12.8 fL Normal 9.5-13.5 [facility] Comment on above: Performed By: #### CBC #### [facility] [address] [place] [address] Dr. Glynn Young PLT 59 103/ul Critically low 150-450 [facility] Comment on above: Result Comment: PLATELET CLUMPS NOTED ON SLIIDE--PLATELET COUNT IS FALSELY DECREASED DUE TO CLUMPING--PLEASE REQUEST REDRAW IF REPEAT PLATELET COUNT IS REQUIRED Performed By: #### C BC #### [facility] [address] [place] [address] Dr. Glynn Young RBC 4.30 106/ul Normal 4.20-5.40 [facility] Comment on above: Performed By: #### CBC #### [facility] [address] [place] [address] Dr. Glynn Young WBC 7.7 103/ul Normal 4.0-11.0 [facility] Comment on above: Performed By: #### CBC #### [facility] [address] [place] [address] Dr. Glynn Young PROF CHEM 8 (BAS METB)on Anion gap [Moles/Vol] 11.6 mmol/L Normal [facility] Comment on above: Performed By: #### BMP, TSH #### [facility] [address] [place] [address] Dr. Glynn Young Calcium [Mass/Vol] 8.4 mg/dL Normal 8.4-10.2 [facility] Comment on above: Performed By: #### BMP, TSH #### [facility] [address] [address] [address] Glynn Young Chloride [Moles/Vol] 104 mmol/L Normal 98-107 [facility] Comment on above: Performed By: #### BMP, TSH #### [facility] [address] [address] [address] Glynn Young CO2 [Moles/Vol] 25.6 mmol/L Normal 22.0-30.0 [facility] Comment on above: Performed By: #### BMP, TSH #### [facility] [address] [place] [address] Dr. Glynn Young Creatinine [Mass/Vol] 0.98 mg/dL Normal 0.52-1.04 [facility] Comment on above: Performed By: #### BMP, TSH #### [facility] [address] [address] [address] Glynn Young EGFR-AF [facility] >60 Normal >=60 [facility] Comment on above: Performed By: #### BMP, TSH #### [facility] [address] [address] [address] Glynn Young EGFR-NON AF [facility] 56 mL/min/1.73m2 Critically low >=60 [facility] Comment on above: Performed By: #### BMP, TSH #### [facility] [address] [address] [address] Glynn Young Glucose [Mass/Vol] 104 mg/dL Normal 74-106 [facility] Comment on above: Performed By: #### BMP, TSH #### [facility] [address] [address] [address] Glynn Young Potassium [Moles/Vol] 4.2 mmol/L Normal 3.4-5.0 [facility] Comment on above: Performed By: #### BMP, TSH #### [facility] [address] [address] [address] Glynn Young Sodium [Moles/Vol] 137 mmol/L Normal 137-145 [facility] Comment on above: Performed By: #### BMP, TSH #### [facility] [address] [place], [place] [address] Dr. Glynn Young Urea nitrogen [Mass/Vol] 20.0 mg/dL Critically high 7.0-17.0 [facility] Comment on above: Performed By: #### BMP, TSH #### [facility] [address] [place], [place] [address] Dr. Glynn Young Urea nitrogen/Creati nine [Mass ratio] 20.4 mg/mg Normal [facility] Comment on above: Performed By: #### BMP, TSH #### [facility] [address] [place] [address] [address] [address] Glynn Young TSHon 09-29-2021 TSH 4.274 uIU/mL Normal 0.470-4.68 0 [facility] Comment on above: Performed By: #### BMP, TSH #### [facility] [address] [place] [address] Dr. Glynn Young TSH RANGE SEE BELOW Normal [facility] Comment on above: Result Comment: <0.34 UIU/ml HYPERTHYROI D 0.34-5.60 UIU/ml EUTHYROID >5.60 UIU/ml HYPOTHYROID Performed By: #### B MP, TSH #### [facility] [address] [place] [address] [address] Glynn Young Post Op (Orthopaedic Surgery [...] upper extremity symptoms start to progress.Siva Wyman ProfessorGerman Hospital School of MedicineDepartment of Orthopaedic SurgeryChief of Hand and Upper Extremity SurgeryUniversity Hospitals Elyria Medical CenterDictation performed with the use of voice recognition software. Syntax and grammatical errors may exist. Active Problems Right carpal tunnel syndrome (354.0) (G56.01) Current Meds HydroCHLOROthiazide 25 MG Oral Tablet;Therapy: (Recorded:[id number]) to Recorded Dispense: 0 Days ; #: Sufficient TABS; Refill: 0; ARLETTE = N; Record; Last Updated By: Nora Park; 12/29/2017 2:55:33 PM Metoprolol Tartrate 25 MG Oral Tablet;Therapy: (Recorded:[id number]) to Recorded Dispense: 0 Days ; #: Sufficient TABS; Refill: 0; ARLETTE = N; Record; Last Updated By: Nora Park; 12/29/2017 2:55:33 PM Diagnoses/Problems Right carpal tunnel syndrome (354.0) (G56.01) End of Encounter MedsHydroCHLOROthiazide 25 MG Oral Tablet;Therapy: (Recorded:[id number]) to RecordedMetoprolol Tartrate 25 MG Oral Tablet;Therapy: (Recorded:90Orf3369) to Recorded Signatures Electronically signed by : Omer Mcnally MD,; Feb 02 2018 7:58PM EST (Author) Normal [facility] History and Physical - Surgi parker Update < 30 dayson 01-19-2018 History and Physical - Surgical Update < 30 days History & Physical Reviewed:I have reviewed the History and Physical dated: [id number] and Physical reviewed and relevant findings noted. [...] patient (as noted in the above attestation) [id number] Provider ? Inpatient Certification StatementN/A - observationpatient/other outpatient visits Electronic Signatures:Jacques Hinds (Resident)) (Signed 19-Jan-2018 07:52)Authored: History & Physical Reviewed, Signatures/Attestation/Certifica Omer Gautam) (Signed 19-Jan-2018 08:12)Authored: Signatures/Attestation/Certifica tionCo-Signer: History & Physical Reviewed, Signatures/Attestation/Certifica tion Last Updated: 19-Jan-2018 08:12 by Omer Mcnally) [facility] OPERATIVE REPORTon 8 OPERATIVE REPORT [facility] [place], [place] [address]Patient Name: MALA SANTIAGOMRN: [id number]: 1945Encounter Number: [id number] of Service: 01/19/2018Patient Location: [id number] Type: OSurgeon: Justo Collins Type: Operative ReportsPREOPERATIVE [...] MD ESTTT: 01/19/2018 11:11 PM ESTDICTATION NUMBER: [id number] JOB NUMBER: [id number]:Houston Brown DO, [id number] Signed by Dr. Omer Mcnally 01/23/2018 01:59:11 PM Normal [facility] Patient Profile - Preop v2on 01-19-2018 Patient Profile - Preop v2 Profile:Initial Info:How to be AddressedShelliaSpoken Language PreferredEnglishAre you currently using the Personal Electronic Health Record or ASHT[facility] COUNTY MEDICAL CENTERyetated Reason for Admissioncarpal tunnelPrimary Contact Name and NumberShelliaLimitations on Visitors/Phone CallsnonePatient BelongingsnoneMedications Brought to Hospitalno General Health:Weight in kg94.8 kilogram(s)Weight in imz124 pound(s)Weight MethodstatedHeight in cm154.9 centimeter(s)Height in feet5 [...] for HIGH RISK.Are there any cultural, spiritual, episcopalian practices/values/needs that areimportant for us to know?noPain [...] Last Updated: 19-Jan-2018 07:58 by Giselle Storey) [facility] Post Operative Note - ORon 0 01-19-2018 Post Operative Note - OR Post Operative Note: Post-Procedure Diagnosis: R CTSProcedure: R CTRSurgeon: MaloneResident/Fellow/Other Metal Cutter: noneAnesthesia: localEstimated Blood Loss (mL): 0Specimen: noFindings: CTS Signature/Cosignature/Attestatio n:Attending AttestationI performed the procedure without a resident Electronic Signatures:Omer Mcnally) (Signed 19-Jan-2018 08:59)Authored: Post Operative Note, Signature/Cosignature/Attestatio n Last Updated: 19-Jan-2018 08:59 by Omer Mcnally) [facility] Preop Checkliston 01-19-2018 Preop Checklist Preop Checklist:Preo p Checklist:? Arrival [id number]? Arrival Time07:46? Procedure Typeright carpal tunnel release? NPO [id number] 00:00? ID Band Onyes? Allergy Bandyes? Consent [...] 19-Jan-2018 07:48 by Emma Goode (SONIA) Normal [facility] Initial Visit (Orthopaedic S urgery)on 12-29-2017 Initial Visit (Orthopaedic Surgery) Chief ComplaintNPV/ RESULTS- EMG (R) Carpal tunnel History of Present IllnessColleen is a 72-year-old lklbi-eqjf-yvjsfeyx female who presents today for evaluation of [...] carpal tunnel syndromeProcedure: Right carpal tunnel releaseCPT: [id number]: MacDuration: 20 minutesSpecial Equipment Needed: NoneLocation: WestlakeInitial Post Operative Visit: 2 weeksSiva Wyman ProfessorGerman Hospital School of MedicineDepartment of Orthopaedic SurgeryChief of Hand and Upper Extremity SurgeryUniversity Hospitals Elyria Medical CenterDictation performed with the use of voice recognition software. Syntax and grammatical errors may exist. Current Meds HydroCHLOROthiazide 25 MG Oral Tablet;Therapy: (Recorded:[id number]) to Recorded Dispense: 0 Days ; #: Sufficient TABS; Refill: 0; ARLETTE = N; Record; Last Updated By: Nora Park; 12/29/2017 2:55:33 PM Metoprolol Tartrate 25 MG Oral Tablet;Therapy: (Recorded:29Dec2017) to Recorded Dispense: 0 Days ; #: Sufficient TABS; Refill: 0; ARLETTE = N; Record; Last Updated By: Nora Park; 12/29/2017 2:55:33 PM Vitals Vital Signs Recorded: 29Dec2017 02:42UJQulibx5 ft Xfernq672 lb BMI Bisrrclijg06.33BSA Calculated1.81 Diagnoses/Problems Right carpal tunnel syndrome (354.0) (G56.01) Signatures Electronically signed by : Omer Mcnally MD,; Dec 29 2017 8:44PM EST (Author) [facility] Vital Signs Date Time Vital Sign Value Performing Clinician Facility 08-17-2024 10:25-0500 Body height 154.94 cm [facility] 08-17-2024 10:25-0500 Body mass index (BMI) [Ratio] 37.3 kg/m2 [facility] 08-17-2024 10:25-0500 Body weight 89.52 kg [facility] 08-17-2024 10:25-0500 Diastolic blood pressure 78 mm[Hg] [facility] 08-17-2024 10:25-0500 Heart rate 64 /min [facility] 08-17-2024 10:25-0500 Respiratory rate 12 /min [facility] 08-17-2024 10:25-0500 Systolic blood pressure 133 mm[Hg] [facility] 01-31-2024 14:12-0400 Body height 154.94 cm [facility] 01-31-2024 14:12-0400 Body mass index (BMI) [Ratio] 35.2 kg/m2 [facility] 01-31-2024 14:12-0400 Body weight 84.59 kg [facility] 01-31-2024 14:12-0400 Diastolic blood pressure 83 mm[Hg] [facility] 01-31-2024 14:12-0400 Heart rate 86 /min [facility] 01-31-2024 14:12-0400 Respiratory rate 12 /min [facility] 01-31-2024 14:12-0400 Systolic blood pressure 143 mm[Hg] [facility] 09-09-2023 10:00-0500 Body height 154.94 cm Houston Ball Other [facility] Other 09-09-2023 10:00-0500 Body mass index (BMI) [Ratio] 36.88 kg/m2 Houston Ball Other [facility] Other 09-09-2023 10:00-0500 Body weight 88.54 kg Houston Ball Other [facility] Other 09-09-2023 10:00-0500 Diastolic blood pressure 77 mm[Hg] Houston Ball Other [facility] Other 09-09-2023 10:00-0500 Respiratory rate 12 /min Houston Ball Other [facility] Other 09-09-2023 10:00-0500 Systolic blood pressure 168 mm[Hg] Houston Ball Other [facility] Other 05-13-2023 11:00-0400 Body height 154.94 cm Houston Ball Other [facility] Other 05-13-2023 11:00-0400 Body mass index (BMI) [Ratio] 36.61 kg/m2 Houston Ball Other [facility] Other 05-13-2023 11:00-0400 Body weight 87.91 kg Houston Ball Other [facility] Other 05-13-2023 11:00-0400 Diastolic blood pressure 81 mm[Hg] Houston Ball Other [facility] Other 05-13-2023 11:00-0400 Respiratory rate 12 /min Houston Ball Other [facility] Other 05-13-2023 11:00-0400 Systolic blood pressure 153 mm[Hg] Houston Ball Other [facility] Other 09-21-2022 11:00-0500 Body height 154.94 cm Houston Ball Other [facility] Other 09-21-2022 11:00-0500 Body mass index (BMI) [Ratio] 35.14 kg/m2 Houston Ball Other [facility] Other 09-21-2022 11:00-0500 Body weight 84.37 kg Houston Ball Other [facility] Other 09-21-2022 11:00-0500 Diastolic blood pressure 72 mm[Hg] Houston Ball Other [facility] Other 09-21-2022 11:00-0500 Respiratory rate 12 /min Houston Ball Other [facility] Other 09-21-2022 11:00-0500 Systolic blood pressure 112 mm[Hg] Houston Ball Other [facility] Other Encounters Encounter Date Encounter Type Care Provider Facility Start: 08-17-2024 End: 08-17-[address] [facility] Work Phone: Start: 08-17-2024 End: 08-17-2024 Patient encounter procedure [facility] Work Phone: Start: 07-14-2024 Patient encounter procedure [facility] Start: 07-13-2024 Non-patient / Non-visit [facility] Work Phone: Start: 03-05-2024 End: 03-05-2024 ambulatory MODE SUN Not Available Start: 02-28-2024 End: 02-28-2024 ambulatory [facility] Not Available Start: 01-31-2024 End: 01-31-[address] [facility] Work Phone: Start: 01-31-2024 End: 01-31-2024 Patient encounter procedure [facility] Work Phone: Start: 11-21-2023 Non-patient / Non-visit [facility] Work Phone: Start: 09-09-2023 End: 09-09-2023 ambulatory Houston Brown Other [facility] Other Start: 09-09-2023 Office outpatient vi sit 25 minutes Houston Brown [facility] Start: 09-09-2023 Telephone encounter Houston [facility]ION [facility] Start: 07-21-2023 End: 07-21-2023 ambulatory Houston Brown Other [facility] Other Start: 07-21-2023 Telephone encounter Houston [facility] Start: 05-13-2023 End: 05-13-2023 ambulatory Houston Brown Other [facility] Other Start: 05-13-2023 Patient encounter procedure Houston Brown [facility] Start: 04-21-2023 End: 04-21-2023 ambulatory Houston Brown Other [facility] Other Start: 04-21-2023 Telephone encounter Houston [facility]ARRION [facility] Start: 09-28-2022 End: 09-28-2022 ambulatory Houston Brown Other [facility] Other Start: 09-28-2022 Telephone encounter Houston [facility]ION [facility] Start: 09-23-2022 End: 09-24-[address] HOUSTON BROWN Facility: Start: 09-23-2022 Telephone encounter Houston CARRION [facility] Start: 09-21-2022 End: 09-22-[address] HOUSTON BROWN Facility:[facility] Start: 09-21-2022 Office outpatient vi sit 25 minutes Houston Brown [facility] Start: 09-21-2022 Telephone encounter [facility] Start: 09-07-2022 End: 09-07-2022 ambulatory Houston Brown Other [facility] Other Start: 09-07-2022 Telephone encounter Houston Brown [facility] Start: 01-22-2022 End: 01-30-[address] HOUSTON BROWN Facility:[facility] Start: 01-20-2022 Adult health examination Houston Brown Other [facility] Other Start: 10-01-2021 End: 10-02-[address] HOUSTON BROWN Facility:[facility] Start: 09-29-2021 End: 09-30-[address] HOUSTON BROWN Facility:[facility] Start: 02-02-2018 Ambulatory Omer Mcnally Faci lity:[id number] Start: 01-19-2018 End: 01-19-2018 Ambulatory Omer Mcnally Facility:[facility] [place] [facility] Procedures Date Procedure Procedure Detail Performing Clinician Start: 01-16-2019 Screening for malign ant neoplasm of colon Houston Brown Other Start: 01-19-2018 Neuroplasty &/transp os median nrv carpal jean Omer Mcnalyl Start: 01-13-2018 General examination of patient Houston Brown Other Start: 01-13-2018 Screening for osteoporosis Houston Brown Other Start: 01-13-2018 Screening mammography B enjaana m Brown Other Screening for malign ant neoplasm of breast Houston Brown Other Plan of Treatment Date Care Activity Detail Author Comprehensive metabo lic 1999 panel - Serum or Plasma [facility] enter Comprehensive metabo lic 1999 panel - Serum or Plasma [facility] enter [facility] Immunizations Immunization Date Immunization Notes Care Provider Fa cility 05-21-2022 influenza virus vaccine, split virus (incl. purified surface antigen) Houston Brown Other [facility] Other 05-21-2022 influenza virus vaccine, unspecified formulation [facility] 05-27-2021 influenza virus vaccine, split virus (incl. purified surface antigen) Houston Brown Other [facility] Other 05-27-2021 influenza virus vaccine, unspecified formulation [facility] 05-14-2020 influenza virus vaccine, split virus (incl. purified surface antigen) Houston Brown Other [facility] Other 05-14-2020 influenza virus vaccine, unspecified formulation [facility] 06-01-2019 influenza virus vaccine, split virus (incl. purified surface antigen) Houston Brown Other [facility] Other 06-01-2019 influenza virus vaccine, unspecified formulation [facility] 01-16-2019 pneumococcal polysaccharide vaccine, 23 valent Houston Brown Other [facility] 05-30-2018 influenza virus vaccine, split virus (incl. purified surface antigen) Houston Brown Other [facility] Other 05-30-2018 influenza virus vaccine, unspecified formulation [facility] 01-13-2018 influenza virus vaccine, split virus (incl. purified surface antigen) Houston Brown Other [facility] Other 01-13-2018 influenza virus vaccine, unspecified formulation [facility] 01-13-2018 pneumococcal conjuga te vaccine, 13 valent Houston Brown Other [facility] 01-13-2018 pneumococcal Conjuga te, unspecified formulation; Translations: [Need for prophylactic vaccination against Streptococcus pneumoniae (pneumococcus)] Houston Brown Other [facility] Other 07-30-2015 diphtheria, tetanus toxoids and acellular pertussis vaccine, unspecified formulation Houston Brown Other [facility] Payers Date Payer Category Payer Medicare [id number] 1957 Unknown [id number] 1957 Unknown [id number] 1957 Unknown [id number] 1945 Unknown [id number] 1945 Unknown [id number] 1945 Unknown [id number] 1945 Unknown [id number] 1945 Unknown [id number] 1947 Unknown [id number] 1945 Unknown [id number] Medicare [id number] Private Health Insurance [employer] [id number] Social History Date Type Detail Facility Unknown if ever smoked [facility] Other Sex Assigned At Sex Assigned At Bir th [facility] Other Start: 1945 Sex Assigned At Female F [facility] Tobacco smoking status NHIS Unknown if ever smoked [facility] Work Phone: Start: 08-17-2024 Sex Female (finding) [facility] Evaluation note 09-09-2023 Note Date & Type Note Facility 09-09-2023 Evaluation note Encounter Date Diagnosis Assessment Notes Sep, Primary hypertension (ICD-10 - I10) [facility] Other Evaluation note 09-09-2023 Note Date & [...] - remote hx of craniotomy, placement of BREASTFEEDING PROGRAM COORDINATOR shunt - hx of ruptured cerebral aneurysm [...] - R53.83) Lab evaluation: BS, CBC, TSH [facility] Other Evaluation note 05-13-2023 Note Date & [...] and yearly mammograms. May, Other Check labs [facility] Other Evaluation note 09-28-2022 Note Date & Type Note Facility 09-28-2022 Evaluation note Encounter Date Diagnosis Assessment Notes Sep, History of cerebral aneurysm (ICD-10 - Z86.79) Sep, BREASTFEEDING PROGRAM COORDINATOR (ventriculope ritoneal) shunt status (ICD-10 - Z98.2) Sep, Ataxia (ICD-10 - R27.0) Sep, Confusion (ICD-10 - R41.0) [facility] Other Evaluation note 09-21-2022 Note Date & Type Note Facility 09-21-2022 Evaluation note Encounter Date Diagnosis Assessment Notes Sep, Iron deficiency anemia, unspecified iron deficiency anemia type (ICD-10 - D50.9) [facility] Other Evaluation note 09-21-2022 Note Date & [...] Hx of aneurysm rupture, required surgery and BREASTFEEDING PROGRAM COORDINATOR shunt placement. Symptoms chronic but worsening. Check [...] of cerebral aneurysm (ICD-10 - Z86.79) s/p BREASTFEEDING PROGRAM COORDINATOR shunt placement Sep, Other Healthy diet and keep active [facility] Other Evaluation note Note Date & Type Note Facility Evaluation note No Information [facility] [employer] Other Evaluation note Note Date & Type Note Facility Evaluation note Diagnosis Onset Date Carotid stenosis, left acute Chronic venous insufficiency of lower extremity acute GERD (gastroesophageal reflux disease) acute Hx of cerebral aneurysm repair acute Hypertension acute Major depression acute MCI (mild cognitive impairment) acute Nicotine addiction acute [facility] Work Phone: Evaluation note Note Date & Type Note Facility Evaluation note Diagnosis Onset Date Resolution Chronic venous insufficiency of lower extremity acute August 17 9:56am IFG (impaired fasting glucose) acute August 17 9:56am Major depression acute August 17, 2024 9:56am Medicare annual wellness visit, subsequent acute August 17, 2024 9:56am [facility] Work Phone: History general Narrative - [...] aneurysm repair Hospitalization History see surgical history [facility] Other Summary Purpose Family History Relationship Condition [...] section and content) DATE CREATED AUTHOR 02/02/2018 [facility] DATE CREATED AUTHOR AUTHOR'S ORGANIZ ATION 02/02/2018 [employer] DATE CREATED AUTHOR AUTHOR'S ORGANIZ ATION 09/28/2022 [facility] DATE CREATED AUTHOR AUTHOR'S ORGANIZ ATION 03/06/2024 [facility] EPIC REASON FOR VISIT (unrecogniz [...] BE BASED ON THE PRIMARY CLINICAL RECORDS. [employer] provides no warranty or guarantee of the accuracy or completeness of information in this document.
--- NOTE | 2024-09-13 11:38 | US_ITS ---
[address] [address] Patient Name: MALA SANTIAGO MRN: [id number] date: 1945 Sex: F Assigned Patient Location: [facility] Current Patient Location: [facility] Accession/Order Number: [id number] Exam Date: 09/13/2024 11:55 Report Date: 09/13/2024 14:00 At the request of: MT HILTON Procedure: US carotid duplex BI EXAMINATION: US carotid duplex BI HISTORY: Stenosis Of Left Carotid Artery COMPARISON: Ultrasound carotid duplex bilateral 09/27/2023 TECHNIQUE: Duplex Doppler ultrasound analysis of carotid and vertebral arteries. . Bilateral carotid arterial duplex examination was performed using B-mode, color flow and spectral analysis. Carotid stenosis is reported according to validated velocity parameters, similar to NASCET criteria. FINDINGS: RIGHT CAROTID ARTERY : Moderate-marked atherosclerotic narrowing within the carotid bulb resulting in 77% area reduction. Subclavian: 167.00 cm/s / 0 cm/s CCA: Prox: 95.00 cm/s / 22.99 cm/s Mid: 108.93 cm/s / 25.32 cm/s Distal: 97.32 cm/s / 22.99 cm/s BULB: 106.57 cm/s / 25.31 cm/s ICA: Prox: 155.22 cm/s / 29.93 cm/s Mid: 104.12 cm/s / 22.96 cm/s Distal: 74.15 cm/s / 20.84 cm/s ECA: 164.71 cm/s / 11.38 cm/s VERTEBRAL: 39.17 cm/s / 11.25 cm/s ICA/CCA ratio: 1.4 LEFT CAROTID ARTERY: Marked atherosclerotic disease within distal CCA, bulb, proximal ICA. Subclavian: 167.10 cm/s / 0.0 cm/s CCA: Prox: 97.32 cm/s / 16.03 cm/s Mid: 95.15 cm/s / 19.22 cm/s Distal: 93.51 cm/s / 19.22 cm/s BULB: 285.51 cm/s / 35.86 cm/s ICA: Prox: 162.96 cm/s / 26.78 cm/s Mid: 90.48 cm/s / 15.57 cm/s Distal: 62.88 cm/s / 13.60 cm/s ECA: 122.00 cm/s / 7.69 cm/s VERTEBRAL: 40.55 cm/s / 10.88 cm/s ICA/CCA ratio: 2.9 US/US carotid duplex BI IMPRESSION: 1. Right carotid bulb moderate to marked atherosclerotic disease with 77% area reduction and 50-69% flow stenosis. 2. Left carotid artery marked atherosclerotic disease with greater than 70% flow stenosis. Spectral Doppler US Thresholds Stenosis (%) PSV (cm/sec) VICA/VCCA 0-49 <150 <2.5 50-69 150-225 2.5-4.0 >70 >225 >4.0 Electronically authenticated by: KADIE OREILLY Date: 09/13/2024 14:00
== END 2024-09-13 11:32 | disposition home or self-care (01) ==
LOC: MAMMO 11:32
PROVIDERS: PCP Internal Medicine; Visit Provider Internal Medicine
DX: Z12.31 Encounter for screening mammogram for malignant neoplasm of breast (principal); I65.22 Occlusion and stenosis of left carotid artery; Z80.3 Family history of malignant neoplasm of breast
CPT/HCPCS: 77063; 77067; 93880